=== PATIENT | male | born 1930 | race Caucasian/White ===

== ENCOUNTER 2016-09-26 00:29 | Inpatient (IN) | payer MEDICARE, OTHER ==
[~2016-09-26] VITALS: Ht 170.2 cm; Wt 86.7 kg
[2016-09-26] VITALS (31 sets, daily range): BP systolic 10–176; BP diastolic 44–79; PULSE 61–93; RESP 20; TEMP 97–98.7; O2SAT 80–100
[2016-09-26] MEDS ORDERED: SODIUM CHLORIDE 0.9% FLUSH 5 ML FLUSH IVF PRN (01:00)
[2016-09-26 01:12] LABS: AUTOMATED NEUTROPHIL # 4.8 TH/MM3 (1.8-7.7); BASOPHIL # 0.1 TH/MM3 (0-0.2); BASOPHIL % 0.7 % (0.0-2.0); CHLORIDE 103 MEQ/L (98-107); EOSINOPHIL # 0.1 TH/MM3 (0-0.4); EOSINOPHIL % 1.1 % (0.0-4.0); LYMPH % 47.2 % (9.0-44.0); LYMPHOCYTE # 5.4 TH/MM3 (1.0-4.8); MEAN CELL VOLUME 97.8 FL (80.0-100.0); MEAN CORPUSCULAR HGB CONC 31.7 % (32.0-36.0); MONO % 8.1 % (0.0-8.0); NEUT % 42.9 % (16.0-70.0); PLATELET COUNT 142 TH/MM3 (150-450); POTASSIUM 3.5 MEQ/L (3.5-5.1); RED BLOOD COUNT 3.58 MIL/MM3 (4.50-5.90); RED CELL DISTRIBUTION WIDTH 14.5 % (11.6-17.2); SODIUM (NA) 143 MEQ/L (136-145); WHITE BLOOD COUNT 11.3 TH/MM3 (4.0-11.0)
[2016-09-26 01:15] LABS: HEMO FLAGS AUTO DIFF
[2016-09-26 01:17] LABS: APTT (PATIENT) 35.5 SEC (24.3-30.1); INTERNATIONAL NORMALIZED RATIO 1.1 RATIO; PROTHROMBIN TIME - PATIENT 12.1 SEC (9.8-11.6)
[2016-09-26 01:27] LABS: ANION GAP 18 MEQ/L (5-15); BICARBONATE 22.5 MEQ/L (21.0-32.0); BLOOD UREA NITROGEN 16 MG/DL (7-18); GLOMERULAR FILTRATION RATE 52 ML/MIN (>89); MAGNESIUM 2.1 MG/DL (1.5-2.5)
[2016-09-26 01:35] LABS: ALKALINE PHOSPHATASE 56 U/L (45-117); ALT (GPT) 105 U/L (12-78); AST (GOT) 165 U/L (15-37); TOTAL BILIRUBIN ADULT 0.5 MG/DL (0.2-1.0)
[2016-09-26 01:36] LABS: CREATINE KINASE 80 U/L (39-308)
[2016-09-26 01:41] LABS: CALCIUM-PROTEIN CORRECTED ND MG/DL (8.5-10.1)
--- NOTE | 2016-09-26 01:51 | RADHPO ---
EXAM DATE/TIME: 09/26/2016 01:34 [facility] COMPARISON: No previous studies available for comparison. INDICATIONS : Chest pains. MEDICAL HISTORY : Cardiovascular disease. SURGICAL HISTORY : None. ENCOUNTER: Initial ACUITY: 1 day PAIN SCORE: Non-responsive. LOCATION: Bilateral chest FINDINGS: Supine portable view of the chest demonstrates endotracheal tube tip well above the alonso. There is hazy opacity in the central two thirds of the lungs bilaterally and some consolidation in the retroc ardiac left lower lung. The heart is upper limits normal size for supine film. The osseous structur es are osteopenic. CONCLUSION: 1. ET tube in good position. 2. Bilateral airspace opacities sparing the periphery of the lungs suggestive of pulmonary edema. Lito Ruelas MD on September 26, 2016 at 1:48 Board Certified Radiologist. This report was verified electronically.
[2016-09-26 01:52] LABS: BANDS 4 % (0-6); BASOPHILS 1 % (0-2); EOSINOPHILS 1 % (0-4); METAMYELOCYTES 1 % (0-1); NEUTROPHIL # MANUAL DIFF 4.1 TH/MM3 (1.8-7.7); POLYS (SEG NEUTROPHILS) 31 % (16-70); WBC DIFF SAMPLE 100
[2016-09-26 01:53] LABS: CRENATED RBCS 3+ (NORMAL); HYPERSEGMENTED POLYS 1+ (NORMAL); OVALOCYTES 1+ (NORMAL)
[2016-09-26 01:54] LABS: PLATELET ESTIMATE SMEAR NORMAL (NORMAL); PLATELET MORPHOLOGY NORMAL (NORMAL); SCAN/DIFF FINAL DIFF MANUAL
[2016-09-26 01:56] LABS: BLOOD GAS BASE EXCESS -13.7 mmol/L (-2-2); BLOOD GAS CARBOXYHEMOGLOBIN 0.8 % (0-4); BLOOD GAS HCO3 16 mmol/L (22-26); BLOOD GAS METHEMOGLOBIN 1.1 % (0-2); BLOOD GAS O2 HGB SATURATION 87 % (90-100); BLOOD GAS OXYGEN CONTENT 12.5 Vol % (12.0-20.0); BLOOD GAS PCO2 72 mmHG (38-42); BLOOD GAS PO2 89 mmHG (61-120); TEMP CORR TO 98.6
[2016-09-26 01:57] LABS: CRITICAL VALUE YES; OXYGEN DEVICE VENTILATOR; VENT SETTINGS AC14/550/10PEEP
[2016-09-26 01:58] LABS: DRAW SITE ALINE; FIO2 100 %; STAT YES
[2016-09-26] MEDS ORDERED: FUROSEMIDE 20 MG/2 ML VIAL IV PUSH ONE ×2 (02:30→06:00)
--- NOTE | 2016-09-26 02:56 | RADHPO ---
EXAM DATE/TIME: 09/26/2016 02:27 [facility] COMPARISON: CHEST SINGLE AP, September 26, 2016, 1:34. INDICATIONS : Post internal pacemaker for chest pains. MEDICAL HISTORY : Cardiovascular disease. SURGICAL HISTORY : None. ENCOUNTER: Initial ACUITY: 1 day PAIN SCORE: Non-responsive. LOCATION: Bilateral chest FINDINGS: Interval placement of right internal jugular catheter was tip projected in the right ventricle. Endo tracheal tube tip well above the alonso. Diffuse central mixed interstitial/alveolar opacities in mayte th lungs and consolidation left lower lung, similar to prior. CONCLUSION: Internal pacer catheter tip projects in the right ventricle. No evidence of pneumothorax. Lito Ruelas MD on September 26, 2016 at 2:54 Board Certified Radiologist. This report was verified electronically.
--- NOTE | 2016-09-26 03:18 | PD ---
HPI Chief Complaint: cardiac arrest Time Seen by Provider: 00:56 Travel History International Travel<30 days: No Contact w/Intl Traveler<30days: No History of Present Illness HPI 81 year-old [place], [place] in cardiac [place]. EMS reports that patient has had cough cold symptoms for the past 4-5 days. They are: After he developed shortness of breath 45 minutes prior to arrival. halfway staff reported that he was having some improvement with the DuoNeb they were giving him. EMS reports that when they made contact he was obtunded. He quickly deteriorated into profound bradycardia. Initially tried external pacing but the patient was noted to be asystolic and chest compressions and ACLS were started. They placed a Combitube. They gave multiple rounds of epinephrine. I believe they gave atropine as well but I'm not sure. Patient then had return of spontaneous circulation on arrival to the emergency department. History Past Medical History Narrative Medical According to the CAD with previous angioplasty but no stents Hypertension Social History Tobacco Use: No Allergies-Medications (Allergen,Severity, Reaction): Coded Allergies: No Known Allergies (Unverified , 09/26/16) Reported Meds & Prescriptions Reported Meds & Active Scripts Active Reported Lisinopril 10 Mg Tab 10 Mg PO DAILY Amlodipine (Amlodipine Besylate) 5 Mg Tab 5 Mg PO DAILY Allopurinol 300 Mg Tab 300 Mg PO DAILY Omeprazole 20 Mg Tab 20 Mg PO DAILY Rosuvastatin (Rosuvastatin Calcium) 20 Mg Tab 20 Mg PO DAILY Review of Systems ROS Limitations: Clinical Condition Physical Exam Narrative GENERAL: Obtunded 81 year-old man, poorly perfused. SKIN: Cool mottled. HEAD: Atraumatic. Normocephalic. EYES: Pupils equal and round. No scleral icterus. No injection or drainage. ENT: No nasal bleeding or discharge. Mucous membranes pink and moist. NECK: Trachea midline. No JVD. CARDIOVASCULAR: Strong bounding pulses. No appreciable murmurs. RESPIRATORY: No spontaneous restaurant effort. Combitube in place. Coarse breath sounds bilaterally with lbj-mtizs-cbef ventilation. GASTROINTESTINAL: Abdomen soft. There is a midline scar the upper abdomen. MUSCULOSKELETAL: No obvious deformities. No edema. NEUROLOGICAL: Obtunded. No response to noxious stimuli. Data Data Orders Electrocardiogram (09/26/16 00:55) Ckmb (Isoenzyme) Profile (09/26/16 00:55) Complete Blood Count With Diff (09/26/16 00:55) Magnesium (Mg) (09/26/16 00:55) Prothrombin Time / Inr (Pt) (09/26/16 00:55) Act Partial Throm Time (Ptt) (09/26/16 00:55) Troponin I (09/26/16 00:55) Chest, Single Ap (09/26/16 00:55) B-Type Natriuretic Peptide (09/26/16 00:56) Sodium Chloride 0.9% Flush (Ns Flush) (09/26/16 01:00) Arterial Blood Gas (Abg) (09/26/16 ) Lactic Acid (09/26/16 00:56) Comprehensive Metabolic Panel (09/26/16 00:35) Chest, Single Ap (09/26/16 ) Furosemide Inj (Lasix Inj) (09/26/16 02:30) Admit Order (Ed Use Only) (09/26/16 ) Labs MDM Medical Decision Making Medical Screen Exam Complete: Yes Emergency Medical Condition: Yes Interpretation(s) Chest x-ray: ET tube in good position. Bilateral airspace disease opacity sparing the periphery of the long suggestive of pulmonary edema. Chest x-ray: Internal pacer catheter tip projects right ventricle. No evidence of pneumothorax. LABS: CBC remarkable for mild leukocytosis, H&H 11.1/35, platelet count 142 CMP remarkable for hypercalcemia, glucose 332, anion gap 18, elevated AST and ALT Troponin 0.06 BNP 868 Lactate 6.9 Coags INR 1.1 ABG 6.98/72/89/16, base excess -13.7 Differential Diagnosis NM, arrhythmia, heart failure, heart block, other Narrative Course Medical decision making Disease year-old man who presented stating status post cardiac arrest. Symptoms seem to be a couple days of URI symptoms. Mostly cough symptoms. No fevers. Shortness of breath worsening today. This may been an infectious prodrome or this may benefit worsening CHF prodrome. Ultimately here patient developed third-degree heart block. Initial EKGs were suspicious for diffuse ischemia. Especially in the lateral leads showing ST depressions. QRS complex is wide. Patient had a prolonged course in the ED. Initially patient was treated with calcium chloride for concern for hyperkalemic arrest. He is given IV fluid to support his blood pressure. Multiple EKGs were obtained. Patient continued to have bradycardia response of epinephrine. He had one repeat also pulses with bradycardia asystolic arrest PEA arrest areas he responded quickly to compressions and epinephrine. His ET tube was changed. It was a difficult exchange and required use of the video laryngoscope. Repeat EKGs done during bradycardia demonstrated clear third-degree heart block. Transcutaneous pacing was reinitiated. I spoke with the motion picture critic initially she reviewed the first ischemic EKG. Notable for IVCD, we are in agreement not STEMI. After third-degree heart block was appreciable, and patient placed on trace cutaneous pacing here and I called him back and we discussed transvenous pacing. Patient be sent to the main ICU, they will notify him once the patient arrives. Transvenous pacer was successfully placed through a right IJ catheter. Patient developed some hypotension following this. X-ray also shows volume overload. IV fluids were stopped. Lasix was given. PEEP was increased. We also started norepinephrine drip. Critical Care Narrative Aggregate critical care time was 75 minutes. Time to perform other separately billable procedures was not included in the critical care time. My time did not include minutes spent treating any other patients simultaneously or on activities that did not directly contribute to the patient's treatment. The services I provided to this patient were to treat and/or prevent clinically significant deterioration that could result in: , disability, heart block, shock, brain , NM. I provided critical care services requiring my management, as noted below: Chart data review, documentation time, medication orders and management, vital sign assessments/reviewing monitor data, ordering and reviewing lab tests, ordering and interpreting/reviewing x-rays and diagnostic studies, care of the patient and discussion of the patient with the admitting physicians. Procedures Procedure Narrative Intubation: Patient was given 20 of Etomidate and 50 of Rocuronium to facilitate optimal ventilating conditions. Combitube was removed. Monge to was used to visualize the larynx. Initial temperature unsuccessful. Patient was then bagged valve mask assisted and feeling scope was brought to the bedside. A to G was in placed under video laryngoscopy successfully. No complications. Central line: Right IJ was prepped with chlorhexidine. 6.5 Nepalese introducer was placed under ultrasound guidance under sterile conditions without complication. Transvenous pacer: Following placement of the right IJ catheter, transvenous pacemaker was placed while monitoring arterial line. When good mechanical capture was noted, settings were adjusted. Patient was paced at a rate of 70, 1 milliamp, asynchronous. Radial arterial line: Right radius was prepped with chlorhexidine. 20-gauge angiocatheter was placed by me at the bedside without difficulty. Good waveform. Patient tolerated well. Diagnosis Primary Impression: Cardiac arrest Additional Impression: Third degree heart block Admitting Information Admitting Physician Requests: Admit Alvaro Guthrie MD Sep 26, 2016 03:18 Random Glucose 332 MG/DL Calcium Level 13.2 MG/DL Protein Corrected Calcium MG/DL Magnesium Level 2.1 MG/DL Total Bilirubin 0.5 MG/DL Aspartate Amino Transf 165 U/L (AST/SGOT) Alanine Aminotransferase 105 U/L (ALT/SGPT) Alkaline Phosphatase 56 U/L Total Creatine Kinase 80 U/L Troponin I 0.06 NG/ML B-Type Natriuretic Peptide 868 PG/ML Total Protein 5.3 GM/DL Albumin 2.6 GM/DL Blood Gas Puncture Site LEONARDO Blood Gas Patient Temperature 98.6 Blood Gas HCO3 16 mmol/L Blood Gas Base Excess -13.7 mmol/L Blood Gas Oxygen Saturation 87 % Arterial Blood pH 6.98 Arterial Blood Partial 72 mmHG Pressure CO2 Arterial Blood Partial 89 mmHG Pressure O2 Arterial Blood Oxygen Content 12.5 Vol % Arterial Blood 0.8 % Carboxyhemoglobin Arterial Blood Methemoglobin 1.1 % Blood Gas Hemoglobin 10.0 G/DL Oxygen Delivery Device VENTILATOR Blood Gas Ventilator Setting AC14/550/10PEEP Blood Gas Inspired Oxygen 100 % Lactic Acid Level 6.9 mmol/L [facility] Medical Decision Making Medical Screen Exam Complete: Yes Emergency Medical Condition: Yes Interpretation(s) Chest x-ray: ET tube in good position. Bilateral airspace disease opacity sparing the periphery of the long suggestive of pulmonary edema. Chest x-ray: Internal pacer catheter tip projects right ventricle. No evidence of pneumothorax. LABS: CBC remarkable for mild leukocytosis, H&H 11.1/35, platelet count 142 CMP remarkable for hypercalcemia, glucose 332, anion gap 18, elevated AST and ALT Troponin 0.06 BNP 868 Lactate 6.9 Coags INR 1.1 ABG 6.98/72/89/16, base excess -13.7 Differential Diagnosis NM, arrhythmia, heart failure, heart block, other Narrative Course Medical decision making Disease year-old man who presented stating status post cardiac arrest. Symptoms seem to be a couple days of URI symptoms. Mostly cough symptoms. No fevers. Shortness of breath worsening today. This may been an infectious prodrome or this may benefit worsening CHF prodrome. Ultimately here patient developed third-degree heart block. Initial EKGs were suspicious for diffuse ischemia. Especially in the lateral leads showing ST depressions. QRS complex is wide. Patient had a prolonged course in the ED. Initially patient was treated with calcium chloride for concern for hyperkalemic arrest. He is given IV fluid to support his blood pressure. Multiple EKGs were obtained. Patient continued to have bradycardia response of epinephrine. He had one repeat also pulses with bradycardia asystolic arrest PEA arrest areas he responded quickly to compressions and epinephrine. His ET tube was changed. It was a difficult exchange and required use of the video laryngoscope. Repeat EKGs done during bradycardia demonstrated clear third-degree heart block. Transcutaneous pacing was reinitiated. I spoke with the motion picture critic initially she reviewed the first ischemic EKG. Notable for IVCD, we are in agreement not STEMI. After third-degree heart block was appreciable, and patient placed on trace cutaneous pacing here and I called him back and we discussed transvenous pacing. Patient be sent to the main ICU, they will notify him once the patient arrives. Transvenous pacer was successfully placed through a right IJ catheter. Patient developed some hypotension following this. X-ray also shows volume overload. IV fluids were stopped. Lasix was given. PEEP was increased. We also started norepinephrine drip. Critical Care Narrative Aggregate critical care time was 75 minutes. Time to perform other separately billable procedures was not included in the critical care time. My time did not include minutes spent treating any other patients simultaneously or on activities that did not directly contribute to the patient's treatment. The services I provided to this patient were to treat and/or prevent clinically significant deterioration that could result in: , disability, heart block, shock, brain , NM. I provided critical care services requiring my management, as noted below: Chart data review, documentation time, medication orders and management, vital sign assessments/reviewing monitor data, ordering and reviewing lab tests, ordering and interpreting/reviewing x-rays and diagnostic studies, care of the patient and discussion of the patient with the admitting physicians. Procedures Procedure Narrative Intubation: Patient was given 20 of Etomidate and 50 of Rocuronium to facilitate optimal ventilating conditions. Combitube was removed. Monge to was used to visualize the larynx. Initial temperature unsuccessful. Patient was then bagged valve mask assisted and feeling scope was brought to the bedside. A to G was in placed under video laryngoscopy successfully. No complications. Central line: Right IJ was prepped with chlorhexidine. 6.5 Nepalese introducer was placed under ultrasound guidance under sterile conditions without complication. Transvenous pacer: Following placement of the right IJ catheter, transvenous pacemaker was placed while monitoring arterial line. When good mechanical capture was noted, settings were adjusted. Patient was paced at a rate of 70, 1 milliamp, asynchronous. Radial arterial line: Right radius was prepped with chlorhexidine. 20-gauge angiocatheter was placed by me at the bedside without difficulty. Good waveform. Patient tolerated well. Diagnosis Primary Impression: Cardiac arrest Additional Impression: Third degree heart block Admitting Information Admitting Physician Requests: Admit Alvaro Guthrie MD Sep 26, 2016 03:18
[2016-09-26 03:25] LABS: BLOOD GAS BASE EXCESS -9.3 mmol/L (-2-2); BLOOD GAS CARBOXYHEMOGLOBIN 1.3 % (0-4); BLOOD GAS HCO3 18 mmol/L (22-26); BLOOD GAS METHEMOGLOBIN 1.1 % (0-2); BLOOD GAS O2 HGB SATURATION 84 % (90-100); BLOOD GAS OXYGEN CONTENT 12.6 Vol % (12.0-20.0); BLOOD GAS PCO2 50 mmHG (38-42); BLOOD GAS PO2 70 mmHG (61-120); BLOOD GAS TOTAL HGB 10.6 G/DL (12.0-16.0); TEMP CORR TO 98.6
[2016-09-26 03:26] LABS: CRITICAL VALUE YES; DRAW SITE ALINE; FIO2 100 %; OXYGEN DEVICE VENTILATOR; STAT YES; VENT SETTINGS AC20/550/125PEEP
[2016-09-26] MEDS ORDERED: PROPOFOL 1000 MG/100 ML INJ 100 ML ONE (03:39)
[2016-09-26] MEDS ORDERED: PROPOFOL 1000 MG/100 ML INJ 100 ML IV SCH (03:45)
[2016-09-26] MEDS ORDERED: ROCURONIUM INJ 50 MG/5 ML VIAL ONE ×2 (05:18→05:19)
[2016-09-26] MEDS ORDERED: MIDAZOLAM 100 MG/ML INJ 100 ML ONE (05:30)
[2016-09-26] MEDS ORDERED: fentaNYL DRIP 250 ML ONE (05:31)
[2016-09-26] MEDS ORDERED: MIDAZOLAM HCL 2 MG/2 ML VIAL IV ONE (05:45)
[2016-09-26] MEDS ORDERED: CISATRACURIUM BESYLATE 20 MG/10 ML VIAL IVP ONE (05:45)
[2016-09-26] MEDS ORDERED: fentaNYL DRIP 250 ML IV SCH (05:45)
[2016-09-26 05:54] LABS: BLOOD GAS BASE EXCESS -7.5 mmol/L (-2-2); BLOOD GAS CARBOXYHEMOGLOBIN 0.9 % (0-4); BLOOD GAS HCO3 19 mmol/L (22-26); BLOOD GAS O2 HGB SATURATION 87 % (90-100); BLOOD GAS OXYGEN CONTENT 14.5 Vol % (12.0-20.0); BLOOD GAS PCO2 50 mmHg (38-42); BLOOD GAS PO2 69 mmHg (61-120); BLOOD GAS TOTAL HGB 11.9 G/DL (12.0-16.0); CRITICAL VALUE YES; OXYGEN DEVICE VENTILATOR; TEMP CORR TO 98.6; VENT SETTINGS PC/AC20/IP15/
[2016-09-26 05:55] LABS: DRAW SITE ART LINE; FIO2 100 %; STAT YES
[2016-09-26] MEDS ORDERED: POTASSIUM CHLOR 20 MEQ PREMIX 100 ML IV ONE (06:00)
[2016-09-26] MEDS ORDERED: SODIUM BICARBONATE 8.4% INJ 50 MEQ/50 ML SYR IV PUSH ONE (06:30)
[2016-09-26] MEDS ORDERED: SODIUM BICARBONATE 8.4% INJ 50 ML ONE ×2 (06:32→11:01)
--- NOTE | 2016-09-26 07:24 | HHI.HP ---
HPI Service Critical Care Medicine Primary Care Physician Non-Staff Admission Diagnosis cardiac arrest, complete heart block Diagnosis: Travel History International Travel<30 Days: No Contact w/Intl Traveler <30 Da: No Traveled to Known Affected Are: No (UNKNOWN) History of Present Illness 86-year-old male with PMH of coronary artery disease with angioplasty in 1991, CHF, who originally came in as a José Miguel Gambino to [facility] emergency department. His states that he had been having some shortness of breath and what she describes as "cold symptoms" for about 4-5 days. She states he acutely awoke very short of breath and [facility] was called. They initially gave a DuoNeb and felt that he was getting some response however he became her family bradycardic and unresponsive. He was in asystole. He received chest compressions, multiple doses of epinephrine, and Combitube was placed. They obtained ROSC upon arrival to ED after unknown period of CPR. He did lose pulses again and had CPR in the ED and one dose of epinephrine. He had ROSC. Combitube was removed and patient was reintubated with some difficulty requiring glide scope. EKG showed complete heart block. He was paced transcutaneous. Dr. Guthrie discussed EKG with land developer due to concern for ischemia but findings were felt to be consistent with 3rd degree heart block without STEMI. Transvenous pacemaker was placed by Dr. Guthrie with good capture. Patient remained hypotensive and levophed was initiated. He was severely hypoxic with sats in 70s on 100% FIO2 so PEEP was increased to 14 prior to transfer. Upon arrival he was on PEEP of 10 and sats were in the 70s and he was on Levophed 12 mcg/min. Pupils fixed, nonreactive. +corneal reflex and spontaneous respirations. was unclear of his medication list upon initial admission. She did state that one of his antihypertensive medications had been discontinued a few months ago due to bradycardia. Past Family Social History Allergies: Coded Allergies: No Known Allergies (Unverified , 09/26/16) Past Medical History Hypertension CHF Hyperlipidemia High Uric acid renal stones Prostate cancer GERD Past Surgical History Cholecystectomy Left hip replacement Right femur ORIF Angioplasty in 1991. He has had no other invasive cardiology workup since then. Reported Medications did not know medications when I initially did my H&P. Subsequently medication list was obtained and includes: Lisinopril 10 mg by mouth daily Allopurinol 300 mg by mouth daily Norvasc 5 mg by mouth daily Rosuvastatin 20 mg po daily Omeprazole 20 mg po daily Family History His brothers both at age 83. One had COPD one had previously had a heart valve replacement. Both had pacemakers. Social History Lifetime nonsmoker Drinks alcohol daily. She states "to very large alcoholic beverages" Denies use of illicit drugs Originally from [place]. Currently living in [facility] and are visiting the area. Physical Exam Vital Signs Vital Signs Date Time Temp Pulse Resp B/P Pulse Ox O2 Delivery O2 Flow Rate FiO2 09/26/16 06:07 20 95 Ventilator 09/26/16 05:25 86 100 09/26/16 05:02 85 100 09/26/16 04:35 78 20 96/58 Ventilator Arterial Line 09/26/16 04:25 79 20 92/58 80 Ventilator Arterial Line 09/26/16 03:12 69 20 112/56 87 Ventilator 09/26/16 02:43 20 99/56 89 Ventilator 09/26/16 02:40 20 100/71 88 Ventilator 09/26/16 01:55 85 100 09/26/16 01:43 67 20 111/45 88 Ventilator Automatic Cuff 09/26/16 01:33 88 100 09/26/16 01:20 20 117/79 88 Ventilator 09/26/16 01:15 20 176/69 89 Ventilator 09/26/16 01:00 95 Ventilator 09/26/16 01:00 92 100 09/26/16 00:50 73 20 71/49 89 09/26/16 00:49 20 99/56 90 09/26/16 00:42 90 Bag Valve 09/26/16 00:40 20 82/45 09/26/16 00:35 91 20 139/59 93 09/26/16 00:32 61 20 100/44 92 09/26/16 00:30 70 20 92 Bag Valve 09/26/16 00:29 92 Bag Valve 15 09/26/16 00:29 70 20 100/44 92 Physical Exam Paced rate 70, 1 mA. sats 79% on PRVC wit hPEEP 10 FIO2 100%. Drips: Propofol 20 mg per KG per minute Norepinephrine 12 mcg/m GENERAL: Well-nourished, well-developed patient who is orotracheally intubated. SKIN: Dry HEAD: Atraumatic. Normocephalic. EYES: Pupils fixed dilated bilaterally~6mm. No scleral icterus. No injection or drainage. ENT: No nasal bleeding or discharge. Mucous membranes pink and moist. NECK: Trachea midline. +JVD CARDIOVASCULAR: paced rhythm on monitor at 70. Adjusted rate to heart rate 90 which resulted in improvement of MAP on same levophed dose. No murmurs rubs or gallops. RESPIRATORY: Coarse breath sounds bilaterally. No wheezes. GASTROINTESTINAL: Abdomen soft, non-tender, nondistended. Bowel sounds hypoactive. MUSCULOSKELETAL: Extremities without clubbing, cyanosis, or edema. No obvious deformities. Scar overlying left knee NEUROLOGICAL: Pupils unreactive as per above. + corneal + spontaneous respirations. No facial grimace to deep noxious stimuli. Some jerking movements of bilateral upper extremities when sedation lightened. Does not withdraw. No lower extremity movement response to deep noxious stimuli. Laboratory Laboratory Tests Test 09/26/16 09/26/16 09/26/16 09/26/16 00:35 01:34 02:34 02:59 White Blood Count 11.3 Red Blood Count 3.58 Hemoglobin 11.1 Hematocrit 35.0 Mean Corpuscular Volume 97.8 Mean Corpuscular Hemoglobin 31.0 Mean Corpuscular Hemoglobin 31.7 Concent Red Cell Distribution Width 14.5 Platelet Count 142 Mean Platelet Volume 7.6 Neutrophils (%) (Auto) 42.9 Lymphocytes (%) (Auto) 47.2 Monocytes (%) (Auto) 8.1 Eosinophils (%) (Auto) 1.1 Basophils (%) (Auto) 0.7 Neutrophils # (Auto) 4.8 Lymphocytes # (Auto) 5.4 Monocytes # (Auto) 0.9 Eosinophils # (Auto) 0.1 Basophils # (Auto) 0.1 CBC Comment AUTO DIFF Differential Total Cells 100 Counted Neutrophils % (Manual) 31 Band Neutrophils % 4 Lymphocytes % 57 Monocytes % 5 Eosinophils % 1 Basophils % 1 Neutrophils # (Manual) 4.1 Metamyelocytes 1 Differential Comment FINAL DIFF MANUAL Hypersegmented Polys 1+ Platelet Estimate NORMAL Platelet Morphology Comment NORMAL Ovalocytes 1+ Crenated Cell 3+ Prothrombin Time 12.1 Prothromb Time International 1.1 Ratio Activated Partial 35.5 Thromboplast Time Sodium Level 143 Potassium Level 3.5 Chloride Level 103 Carbon Dioxide Level 22.5 Anion Gap 18 Blood Urea Nitrogen 16 Creatinine 1.20 Estimat Glomerular Filtration 52 Rate Random Glucose 332 Calcium Level 13.2 Protein Corrected Calcium Magnesium Level 2.1 Total Bilirubin 0.5 Aspartate Amino Transf 165 (AST/SGOT) Alanine Aminotransferase 105 (ALT/SGPT) Alkaline Phosphatase 56 Total Creatine Kinase 80 Troponin I 0.06 2.27 B-Type Natriuretic Peptide 868 Total Protein 5.3 Albumin 2.6 Blood Gas Puncture Site LEONARDO Blood Gas Patient Temperature 98.6 Blood Gas HCO3 16 Blood Gas Base Excess -13.7 Blood Gas Oxygen Saturation 87 Arterial Blood pH 6.98 Arterial Blood Partial 72 Pressure CO2 Arterial Blood Partial 89 Pressure O2 Arterial Blood Oxygen Content 12.5 Arterial Blood 0.8 Carboxyhemoglobin Arterial Blood Methemoglobin 1.1 Blood Gas Hemoglobin 10.0 Oxygen Delivery Device VENTILATOR Blood Gas Ventilator Setting AC14/550/10PEEP Blood Gas Inspired Oxygen 100 Lactic Acid Level 6.9 Test 09/26/16 09/26/16 09/26/16 03:15 05:40 05:59 Blood Gas Puncture Site LEONARDO ART LINE Blood Gas Patient Temperature 98.6 98.6 Blood Gas HCO3 18 19 Blood Gas Base Excess -9.3 -7.5 Blood Gas Oxygen Saturation 84 87 Arterial Blood pH 7.18 7.21 Arterial Blood Partial 50 50 Pressure CO2 Arterial Blood Partial 70 69 Pressure O2 Arterial Blood Oxygen Content 12.6 14.5 Arterial Blood 1.3 0.9 Carboxyhemoglobin Arterial Blood Methemoglobin 1.1 1.0 Blood Gas Hemoglobin 10.6 11.9 Oxygen Delivery Device VENTILATOR VENTILATOR Blood Gas Ventilator Setting AC20/550/125PEEP PC/AC20/IP15/ Blood Gas Inspired Oxygen 100 100 Lactic Acid Level 3.8 Phosphorus Level 5.6 Thyroid Stimulating Hormone 1.270 3rd Gen Result Diagram: 09/26/16 0035 09/26/16 0035 Assessment and Plan Assessment and Plan NEURO: Acute encephalopathy ?Anoxia Pupils fixed but other brainstem reflexes intact. Limited in ability to do full neuro assessment as he is severely hypoxic and must maintain some sedation; now requiring paralytic to facilitate oxygenation. Would avoid induced therapeutic hypothermia given asystolic arrest and 3rd degree heart block with ongoing severe hemodynamic instability. aware of guarded neuro prognosis. d/c propofol for sedation to avoid myocardial depression. Fentanyl for analgosedation. Versed bolus prn and versed drip Nimbex to facilitate oxygenation. RESP: Acute respiratory failure Pulmonary edema PCV Insp P 15 R 20 PEEP 14 It 0.8 sats 100%(TV 590). Duoneb q 6 hours. Vent bundle. repeat ABG. Received lasix 20 mg IV in ED without response. Additional 60 mg IV now. Nimbex as per above. Flolan neb 50 ng/kg/min CV: Asystolic cardiac arrest 3rd degree heart block Cardiogenic shock Acute systolic heart failure Concerned for decreased contractility and WMA based on limited bedside Echo. D/ c propofol as per above.Continue Levophed to maintain MAP >65. Serial troponin. Stat EKG with LBBB pattern. Stat 2DEcho. ASA 325 been given in ED. Continue 81 daily Transvenous pacer placed in ED 09/26. Set rate to 90 to increase cardiac output ( MAP increased). 0.5 mAmp (did not tolerate lower). Hold norvasc/lisinopril due to hypotension. Hold statin due to elevated LFTS. Cardiology consulted. Discussed with Dr. Howie Madrid. GI: Transaminase elevation due to CHF/ischemic hepatopathy NPO. OGT LIWS FEN/RENAL: Hypercalcemia (iatrogenic following calcium administration due to concern for hyperkalemia induced bradycardia) Acute severe metabolic acidemia Lactic acidemia secondary to cardiogenic shock h/o high uric acid stones - Hold allopurinol for now. Dominguez in place. Monitor intake and output. Monitor electrolytes. Potassium chloride 20 mEq IV now. Replace further electrolyte as indicated. Bicarb 100 MEQ IV x1 due to severe acidemia. Followup ABG after vent change/ resuscitation. Serial BMP, Mag, lactic acid every 6 hours. ID:Presentation appears cardiogenic and patient with severe life threatening hypoxemia and pulmonary edema, so will avoid antibiotics at this time. Low threshold to culture and use empiric antibiotics if he develops fever or other concern for infection. HEME: Monitor CBC. ENDO: Acute stress hyperglycemia Low dose insulin sliding scale every 4 hours PROPH: Heparin subcutaneous for DVT prophylaxis. Protonix 40 mg IV daily for stress ulcer prophylaxis ACCESS: R IJ Introducer and pacer placed in ED 09/26 . Right radial art line placed in ED 09/26 #[address] Madrid. Discussed with Dr. Guthrie. . was updated at bedside. states he previously had an advanced directive stating that he is DNR. However in view of the fact that he had ROSC after this current cardiac arrest she states that she would "want to keep trying for now". But she states he would not want to be kept alive on life support with poor neurologic function. She is aware possibility for anoxic injury at this time, will require ongoing assessment of neuro function if he stabilizes enough to allow sedation vacation. CCT 90 minutes exclusive of separately billable procedures. Cristy Whitfield MD Sep 26, 2016 07:24
[2016-09-26] MEDS ORDERED: ONDANSETRON HCL 4 MG/2 ML VIAL IV PRN (07:30)
[2016-09-26] MEDS ORDERED: CHLORHEXIDINE GLUCONATE 2 % 1 PACK (2 CLOTHS) TOP PRN (07:30)
[2016-09-26] MEDS ORDERED: SODIUM CHLORIDE 0.9% FLUSH 5 ML FLUSH IV FLUSH PRN (07:30)
[2016-09-26] MEDS ORDERED: MISCELLANEOUS NURSING INFORMATION XX SCH (07:30)
[2016-09-26] MEDS ORDERED: RESP: ALBUTEROL 2.5 MG/3 ML NEB (PRN) INH (07:30)
[2016-09-26] MEDS ORDERED: ACETAMINOPHEN 325 MG TAB PO PRN (07:30)
[2016-09-26] MEDS ORDERED: MIDAZOLAM HCL 2 MG/2 ML VIAL IV PRN (07:30)
[2016-09-26] MEDS: MIDAZOLAM 100 MG/ML INJ 100 ML IV SCH (07:48)
[2016-09-26] MEDS: EPOPROSTENOL NEB SOLUTION 50 NG/KG/MIN 100 ML NEB SCH ×6 (07:49→22:45)
[2016-09-26] MEDS: CHLORHEXIDINE 0.12% (ORAL KIT) 15 ML CUP MT SCH ×2 (08:00→20:00)
[2016-09-26] MEDS ORDERED: ASPIRIN 81 MG CHEW TAB TUBE ONE ×2 (08:00→09:00)
[2016-09-26] MEDS: HEPARIN SODIUM - SQ 10,000 UNITS/ML VIAL SQ SCH ×2 (09:51→17:04)
[2016-09-26] MEDS: SODIUM CHLORIDE 0.9% FLUSH 5 ML FLUSH IV FLUSH SCH ×2 (09:51→21:00)
[2016-09-26] MEDS: PANTOPRAZOLE SODIUM 40 MG VIAL IV SCH (09:51)
[2016-09-26] MEDS ORDERED: OMEP20TA PO (10:02)
[2016-09-26] MEDS ORDERED: AMLO5TAB2 PO (10:02)
[2016-09-26] MEDS ORDERED: ROSU1TAB8 PO (10:02)
[2016-09-26] MEDS ORDERED: ALLO300T2 PO (10:02)
[2016-09-26] MEDS ORDERED: LISI10TA3 PO (10:02)
[2016-09-26] MEDS ORDERED: POTASSIUM CHLOR 40 MEQ PREMIX 100 ML ONE (11:00)
--- NOTE | 2016-09-26 11:25 | EC ---
Study Study Date:09/26/2016 STUDY CONCLUSIONS SUMMARY - Left ventricle: The cavity size was mildly dilated. Wall thickness was normal. Systolic function was severely reduced. The estimated ejection fraction was in the range of 20% to 25%. Diffuse hypokinesis. Akinesis of the apical myocardium. Doppler parameters are consistent with abnormal left ventricular relaxation (grade 1 diastolic dysfunction). - Aortic valve: Moderate regurgitation. - Left atrium: A density was seen in the high left atrium, also on additional pictures obtained; consider RICKY if clinically appropriate. - Pulmonary arteries: PA peak pressure: 39mm Hg (S). If LV function is below 40, please consider prescribing an ACEI or ARB or document rationale for non-use. PROCEDURE DATA STUDY STATUS: Elective. Procedure: Transthoracic echocardiography. Image quality was good. Scanning was performed from the parasternal, apical, and subcostal acoustic windows. Study completion: The patient tolerated the procedure well. Transthoracic echocardiography. M-mode, complete 2D, complete spectral Doppler, and color Doppler. Patient status: Inpatient. CARDIAC ANATOMY LEFT VENTRICLE: The cavity size was mildly dilated. Wall thickness was normal. Systolic function was severely reduced. The estimated ejection fraction was in the range of 20% to 25%. Diffuse hypokinesis. Regional wall motion abnormalities: Akinesis of the apical myocardium. Doppler parameters are consistent with abnormal left ventricular relaxation (grade 1 diastolic dysfunction). AORTIC VALVE: Trileaflet; moderately thickened, moderately calcified leaflets. Doppler: Transvalvular velocity was within the normal range. There was no stenosis. Moderate regurgitation. Mean gradient: 9mm Hg (S). Peak gradient: 19mm Hg (S). AORTA: Aortic root: The aortic root was normal in size. MITRAL VALVE: Structurally normal valve. Doppler: Transvalvular velocity was within the normal range. There was no evidence for stenosis. Trace regurgitation. LEFT ATRIUM: A density was seen in the high left atrium, also on additional pictures obtained; consider RICKY if clinically appropriate. The atrium was normal in size. RIGHT VENTRICLE: The cavity size was normal. Wall thickness was normal. PULMONIC VALVE: Doppler: Transvalvular velocity was within the normal range. There was no evidence for stenosis. No regurgitation. TRICUSPID VALVE: Structurally normal valve. Doppler: Transvalvular velocity was within the normal range. No regurgitation. PULMONARY ARTERY: The main pulmonary artery was normal-sized. Systolic pressure was within the normal range. RIGHT ATRIUM: The atrium was normal in size. PERICARDIUM: There was no pericardial effusion. SYSTEMIC VEINS: Inferior vena cava: The vessel was normal in size. BASIC MEASUREMENTS ADULT Normal Left ventricle LV internal dimension, ED, chordal level, *59.3 mm 43-52 PLAX LV internal dimension, ES, chordal level, *56.2 mm 23-38 PLAX Fractional shortening, chordal level, PLAX *5 % >29 LV posterior wall thickness, ED 8.63 mm IVS/LVPW ratio, ED 1.13 <1.3 Volume, ED, MOD, 1-plane 135 ml Volume, ES, MOD, 1-plane 99 ml Ejection fraction, MOD, 1-plane 27 % Stroke volume, MOD, 1-plane 36 ml Volume, ED, MOD, 2-plane 169 ml Volume, ES, MOD, 2-plane 122 ml Ejection fraction, MOD, 2-plane 28 % Stroke volume, MOD, 2-plane 47 ml Ventricular septum Septal thickness, ED 9.77 mm Left atrium Anterior-posterior dimension 37 mm Right ventricle RV internal dimension, ED, PLAX 28.1 mm 19-38 DOPPLER MEASUREMENTS ADULT Normal Main pulmonary artery Pressure, S *39 mm Hg =30 Aortic valve Peak velocity, S 218 cm/s Mean velocity, S 132 cm/s VTI, S 39.8 cm Mean gradient, S 9 mm Hg Peak gradient, S 19 mm Hg Mitral valve Peak E-wave velocity 52.8 cm/s Peak A-wave velocity 77 cm/s Peak E/A ratio 0.7 Tricuspid valve Regurgitant peak velocity 217 cm/s Peak RV-RA gradient, S 19 mm Hg Maximal regurgitant velocity 217 cm/s Systemic veins Estimated CVP 20 mm Hg Right ventricle RV pressure, S *39 mm Hg <30 LEGEND: Mean values are shown as u=mean value. Asterisk (*) christopher values outside specified normal range. Amended Sean Severino [id number]
[2016-09-26] MEDS: RESP: ALBUTEROL 2.5 MG/IPRATROPIUM 0.5 MG NEB (SCH) INH ×4 (12:03→22:19)
[2016-09-26] MEDS ORDERED: GLUCAGON 1 MG/ML VIAL OTHER PRN (12:45)
[2016-09-26] MEDS ORDERED: DEXTROSE 50% IN WATER 50 ML VIAL(D50) IV PUSH PRN (12:45)
[2016-09-26] MEDS: INSULIN ASPART SUPPLEMENTAL SCALE SQ SCH ×3 (13:00→21:00)
--- NOTE | 2016-09-26 13:05 | MB ---
cc: VIKTOR TRISTAN DO DATE OF CONSULTATION: 09/26/2016 REASON FOR CONSULTATION: Cardiac arrest. HISTORY OF PRESENT ILLNESS Barbi Cee is a 86-year-old male who originally presented as a JohnDoe in cardiac arrest to [facility] emergency room on September 26, 2016. Per the record he had a history for the records he has had cold symptoms for the past 4-5 days. He then developed shortness of breath and the [facility] staff was trying to give him DuoNeb's with some improvement. EMS was called and by the time they got there the patient was obtunded and in profound brachycardia. They initially tried external pacing but the patient was noted to be asystolic and chest compressions and ACLS were started. He was given multiple rounds of epinephrine and possible atropine. On arrival to the emergency room he had return of spontaneous circulation. He had one further episode of PE arrest in the emergency room which he had return of spontaneous circulation after compressions and epinephrine. While here he developed third degree heart block and a transvenous pacemaker was placed. In seeing him at this time in the ICU. He is currently stable an extremely guarded condition currently supported by the vent and vasopressor medications. Transvenous pacer is currently still in place and the pacer is not pacer dependent. PAST MEDICAL HISTORY Per the coronary artery disease with previous angioplasty but no stent placed, (believed to be in the ) Hypertension. PAST SURGICAL HISTORY Cardiac catheterization as above with the angioplasty but no stent placement. ALLERGIES NO KNOWN DRUG ALLERGIES. MEDICATIONS Unknown at this time due to the patient's current status. SOCIAL HISTORY Lives in the [facility], otherwise unknown due to the patient's current situation. FAMILY HISTORY Unable to obtain. REVIEW OF SYSTEMS Unable to obtain except for initially by EMS to the emergency room with colon cough symptoms for 4-5 days. PHYSICAL EXAMINATION VITAL SIGNS: Temperature 97, heart rate 80, blood pressure 140/76, respirations 20, pulse ox 98% on 100% on the ventilator. IN GENERAL: In general the patient is sedated on the ventilator. HEAD, EYES, EARS, NOSE, AND THROAT: Eyes were fixed and dilated. ET tube is in place. NECK: Neck is supple. No JVD at 45 degrees. No carotid bruits heard bilaterally. Right IJ in place with a transvenous pacer. HEART: Heart is regular rate and rhythm. Positive first and second heart sounds with no pressure will murmurs. LUNGS: Lungs have decreased breath sounds bilaterally. ABDOMEN: Soft, nontender, nondistended. No organomegaly noted. EXTREMITIES: Show no clubbing, cyanosis or edema. Femoral and distal pulses intact bilaterally. NEUROLOGIC: Neurologically unable to determine due to current sedation and critical nature. SKIN: Warm, dry and intact. Osteopathic late no kyphoscoliosis, lordosis or paraspinal tender points. LABORATORY FINDINGS Hemoglobin 11.1, hematocrit 35.0, platelets 142. Potassium 3.5, BUN 16, creatinine 1.2, calcium 13.2, troponin 2.27, lactic acid 6.9. Electrocardiogram (September 26, 2016 at 12:50) probable accelerated new ventricular rhythm with interventricular conduction delay. IMPRESSION Cardiopulmonary arrest Third degree AV block requiring to transvenous pacemaker. Cardiac shock requiring pressor therapy. NSTEMI unsure type 1 versus type 2 Significant lactic acidosis with a pH of 6.98 on arrival metabolic in nature. Significant hypoxemia. Vent dependent respiratory failure. History of coronary artery disease with previous angioplasty but no stenting. RECOMMENDATIONS Barbi Cee appears to have presented with cardiopulmonary arrest. Unsure of the underlying cause whether that be significant hypoxemia leading to lactic acidosis and cardiac deterioration versus cardiac underlying cause. Continue with supportive care per the critical care team. We will continue on pressor therapy to keep above 65. Continue with transvenous pacer on a backup rate of 40. Currently not pacer dependent. Third degree heart block may be due to significant lactic acidosis. Will check a 2-D echo to look at his overall left ventricular function, cardiac structure and possible vulvopathies. We will continue to follow troponins but this elevation may be secondary to his underlying acute illness extreme hypoxemia and lactic acidosis. Further recommendations will be made based on hospital course. Thank you for allowing me to see Barbi Cee if there are any questions please do not hesitate to call. Viktor Tristan DO VGP/ /9:08 AM /12:16 PM [facility]
--- NOTE | 2016-09-26 16:31 | EKG ---
Date Performed: 09/26/2016 Time Performed: 00:50:32 PTAGE: 86 years EKG: Probable accelerated idioventricular rhythm QRS very wide. This could be due to ischemia or electrolyte or other abnormality. [place] leftward Diffuse ST T changes NO PREVIOUS TRACING for comparison Clinical correlation is recommended Abnormal ECG PREVIOUS TRACING : 09/26/2016 00.37 DOCTOR: Juan Alberto Malagon Interpretating Date/Time 09/26/2016 16:30:00
--- NOTE | 2016-09-26 16:35 | EKG ---
Date Performed: 09/26/2016 Time Performed: 05:56:20 PTAGE: 86 years EKG: APPEARS TO BE Sinus rhythm WITH FIRST DEGREE AV BLOCK WITH MA INTERVAL OF .222 WIDE QRS COMPLEX WITH LBBB PATTERN AND LEFT AXIS DEVIATION NO SPECIFIC ST T CHANGE SINCE PREVIOUS TRACING OF 09/26/2016, QRS IS NOT WIDE. APPEARS TO BE SINUS RHYTHM PRESENT AN D THE ST T CHANGES ARE LESS PROMINENT. Clinical correlation is recommended PREVIOUS TRACING 09/26/2016 @00.50.32 DOCTOR: Juan Alberto Malagon Interpretating Date/Time 09/26/2016 16:54:40
--- NOTE | 2016-09-26 17:15 | RADRPT ---
EXAM DATE/TIME: 09/26/2016 16:16 [facility] COMPARISON: No previous studies available for comparison. INDICATIONS : Altered mental status. RADIATION DOSE: 56.35 CTDIvol (mGy) MEDICAL HISTORY : Carcinoma, prostate. Hypertension. SURGICAL HISTORY : None. ENCOUNTER: Initial ACUITY: 1 day PAIN SCALE: Non-responsive LOCATION: cranial TECHNIQUE: Multiple contiguous axial images were obtained of the head. Using automated exposure control and adj ustment of the mA and/or kV according to patient size, radiation dose was kept as low as reasonably a chievable to obtain optimal diagnostic quality images. FINDINGS: Scattered small foci of low attenuation seen in the periventricular white matter of both cerebral hem ispheres. These appear patchy rather than diffuse and of concern for possible underlying intra-axial masses. A 2.5 x 5.3 cm area of similar patchy low attenuation seen in the subcortical region of the l eft occipital lobe. Additional characterization with a contrast-enhanced study recommended, preferabl y MRI. No bleed. No mass effect or midline shift. There is a 12 mm lucency of the right occipital bone that involves both the inner and outer tabl es and of concern for a lytic lesion.. There is mucoperiosteal thickening of the visualized paranasal sinuses. Small fluid level seen in the right maxillary air cell. CONCLUSION: 1. Scattered small foci of periventricular and left occipital subcortical low attenuation as above. M RI of the brain with and without contrast recommended. 2. Possible 12 mm lytic lesion in the right occipital bone. 3. Acute on chronic appearing sinusitis. José Miguel Wilkinson MD on September 26, 2016 at 17:10 Board Certified Radiologist. This report was verified electronically.
--- NOTE | 2016-09-26 19:01 | ECHLIM ---
Study Study Date:09/26/2016 STUDY CONCLUSIONS SUMMARY LEFT ATRIUM: There is a somewhat mobile appearing opacity in the high left atrium of uncertain origin; consider RICKY if clinically indicated. If LV function is below 40, please consider prescribing an ACEI or ARB or document rationale for non-use. PROCEDURE DATA Procedure: Transthoracic echocardiography. Image quality was good. Scanning was performed from the parasternal, apical, and subcostal acoustic windows. Study completion: The patient tolerated the procedure well. Transthoracic echocardiography. M-mode, limited 2D, limited spectral Doppler, and color Doppler. CARDIAC ANATOMY LEFT ATRIUM: There is a somewhat mobile appearing opacity in the high left atrium of uncertain origin; consider RICKY if clinically indicated. Prepared and signed by Sean Severino [id number]
[2016-09-26] MEDS: CISATRACURIUM INJ 100 MG in SODIUM CHLOR 0.9% 250 ML INJ 240 ML IV SCH (19:14)
[2016-09-26] MEDS ORDERED: FUROSEMIDE 40 MG/4 ML VIAL IV PUSH ONE (23:45)
[2016-09-27] VITALS (17 sets, daily range): BP systolic 100–135; BP diastolic 44–66; PULSE 88–104; RESP 20; TEMP 98.4–100.9; O2SAT 96–98
[2016-09-27] MEDS: HEPARIN SODIUM - SQ 10,000 UNITS/ML VIAL SQ SCH ×3 (00:13→16:39)
[2016-09-27] MEDS: NOREPINEPHRINE 4 MG/D5W 250 ML IV SCH ×2 (01:10→11:09)
[2016-09-27] MEDS: INSULIN ASPART SUPPLEMENTAL SCALE SQ SCH ×6 (01:12→21:00)
[2016-09-27] MEDS: CHLORHEXIDINE GLUCONATE 2 % 1 PACK (2 CLOTHS) TOP SCH (04:00)
[2016-09-27] MEDS: RESP: ALBUTEROL 2.5 MG/IPRATROPIUM 0.5 MG NEB (SCH) INH ×4 (04:30→21:17)
[2016-09-27] MEDS: CISATRACURIUM INJ 100 MG in SODIUM CHLOR 0.9% 250 ML INJ 240 ML IV SCH (05:38)
[2016-09-27 05:40] LABS: AUTOMATED NEUTROPHIL # 10.6 TH/MM3 (1.8-7.7); BASOPHIL % 0.1 % (0.0-2.0); HEMATOCRIT 33.1 % (39.0-51.0); LYMPH % 6.9 % (9.0-44.0); LYMPHOCYTE # 0.9 TH/MM3 (1.0-4.8); MEAN CELL VOLUME 93.5 FL (80.0-100.0); MEAN CORPUSCULAR HEMOGLOBIN 30.6 PG (27.0-34.0); MEAN CORPUSCULAR HGB CONC 32.8 % (32.0-36.0); MONO % 8.1 % (0.0-8.0); NEUT % 84.9 % (16.0-70.0); PLATELET COUNT 132 TH/MM3 (150-450); RED BLOOD COUNT 3.54 MIL/MM3 (4.50-5.90); RED CELL DISTRIBUTION WIDTH 14.4 % (11.6-17.2); WHITE BLOOD COUNT 12.5 TH/MM3 (4.0-11.0)
[2016-09-27 05:57] LABS: HEMO FLAGS AUTO DIFF
[2016-09-27 06:14] LABS: MAGNESIUM 1.4 MG/DL (1.5-2.5)
[2016-09-27 06:46] LABS: BICARBONATE 20.9 MEQ/L (21.0-32.0); POTASSIUM 4.1 MEQ/L (3.5-5.1)
--- NOTE | 2016-09-27 06:48 | RADRPT ---
EXAM DATE/TIME: 09/27/2016 04:58 [facility] COMPARISON: CHEST SINGLE AP, September 26, 2016, 2:27. INDICATIONS : Shortness of breath, possible pulmonary disease. MEDICAL HISTORY : Cardiovascular disease. SURGICAL HISTORY : None. ENCOUNTER: Subsequent ACUITY: 2 days PAIN SCORE: Non-responsive. LOCATION: Bilateral chest FINDINGS: Endotracheal tube tip well above the alonso. Right internal jugular catheter tip projects in the rig ht ventricle. There is persisting consolidation in the left lower lung with loss of delineation of t he left hemidiaphragm. Hazy opacity in the right lower lung without consolidation. The upper lungs are clear. CONCLUSION: Persistent left lower lobe consolidation and ill-defined opacities in the right lower lung. Lito Ruelas MD on September 27, 2016 at 6:45 Board Certified Radiologist. This report was verified electronically.
[2016-09-27] MEDS ORDERED: DOBUTamine PREMIX DRIP 250 ML ONE (07:00)
[2016-09-27] MEDS: DOBUTamine PREMIX DRIP 250 ML IV SCH ×2 (07:01→16:38)
[2016-09-27] MEDS ORDERED: POTASSIUM CHLOR 40 MEQ PREMIX 100 ML IV PRN ×2 (07:15)
[2016-09-27] MEDS ORDERED: MAGNESIUM OXIDE 400 MG TAB PO PRN (07:15)
[2016-09-27] MEDS ORDERED: POTASSIUM CHLOR 20 MEQ PREMIX 100 ML IV PRN ×2 (07:15)
[2016-09-27] MEDS ORDERED: MAGNESIUM SULFATE INJ 4 GM in SODIUM CHLORIDE 0.9% INJ 92 ML IV PRN (07:15)
[2016-09-27] MEDS ORDERED: POTASSIUM PHOSPHATE INJ 30 MMOL in SODIUM CHLOR 0.9% 250 ML INJ 250 ML IV PRN (07:15)
[2016-09-27] MEDS ORDERED: SODIUM PHOSPHATE INJ 30 MMOL in SODIUM CHLOR 0.9% 250 ML INJ 240 ML IV PRN (07:15)
[2016-09-27] MEDS ORDERED: POTASSIUM PHOSPHATE MONOBASIC 500 MG TAB PO PRN (07:15)
[2016-09-27] MEDS ORDERED: POTASSIUM PHOSPHATE MONOBASIC 500 MG TAB PO/TUBE PRN (07:15)
[2016-09-27] MEDS ORDERED: MAGNESIUM SULFATE INJ 2 GM in SODIUM CHLORIDE 0.9% INJ 96 ML IV PRN (07:15)
[2016-09-27] MEDS ORDERED: MAGNESIUM SULFATE 1 GM PREMIX 100 ML ONE (07:17)
--- NOTE | 2016-09-27 07:22 | HHI.CCPN ---
Subjective Remarks/Hospital Course Hospital Course: 86-year-old male with PMH of coronary artery disease with angioplasty in 1991, CHF, who originally came in as a José Miguel Gambino to [facility] emergency department. His states that he had been having some shortness of breath and what she describes as "cold symptoms" for about 4-5 days. She states he acutely awoke very short of breath and [facility] was called. They initially gave a DuoNeb and felt that he was getting some response however he became her family bradycardic and unresponsive. He was in asystole. He received chest compressions, multiple doses of epinephrine, and Combitube was placed. They obtained ROSC upon arrival to ED after unknown period of CPR. He did lose pulses again and had CPR in the ED and one dose of epinephrine. He had ROSC. Combitube was removed and patient was reintubated with some difficulty requiring glide scope. EKG showed complete heart block. He was paced transcutaneous. Dr. Guthrie discussed EKG with director of leadership development due to concern for ischemia but findings were felt to be consistent with 3rd degree heart block without STEMI. Transvenous pacemaker was placed by Dr. Guthrie with good capture. Patient remained hypotensive and levophed was initiated. He was severely hypoxic with sats in 70s on 100% FIO2 so PEEP was increased to 14 prior to transfer. Upon arrival he was on PEEP of 10 and sats were in the 70s and he was on Levophed 12 mcg/min. Pupils fixed, nonreactive. +corneal reflex and spontaneous respirations. was unclear of his medication list upon initial admission. She did state that one of his antihypertensive medications had been discontinued a few months ago due to bradycardia. Subjective: 09/27: yesterday, significantly hypoxic. echo yesterday with severely depressed LV function. this morning, less hypoxic, fio2 weaned to 45%. pupils more reactive today. CT head yesterday without significant intracranial pathology. overnight significant oliguria, trial of lasix 40mg iv without improvement. I placed central venous line this morning (see procedure note for details), CVP 11. Pulse contour analysis demonstrates CI 2.8 with SVV 9. Cr uptrending. Objective Vital Signs Date Time Temp Pulse Resp B/P Pulse Ox O2 Delivery O2 Flow Rate FiO2 09/27/16 04:31 98 50 09/27/16 04:00 80 09/27/16 04:00 Mechanical Ventilator 09/27/16 03:00 98.6 20 100/47 111/51 09/26/16 00:29 15 Intake and Output 09/26/16 09/26/16 09/27/16 08:00 16:00 00:00 Intake Total 3000 ml 760 ml Output Total 400 ml Balance 3000 ml 360 ml Result Diagram: 09/27/16 0500 09/27/16 0500 Objective Remarks GENERAL: critically ill elderly male, orotracheally intubated, sedated, paralyzed. HEENT: pupils 4mm but reactive this morning. mucous membranes moist. NECK: Trachea midline. +JVD. right IJ introducer with pacer in place. right SC TLC site clean, dressing intact. CARDIOVASCULAR: NSR at 103 this AM. norepinephrine. RESPIRATORY: Coarse breath sounds bilaterally, worse on right than left. No wheezes. prvc peep 12, fio2 45% GASTROINTESTINAL: Abdomen soft, non-tender, nondistended. no guarding. MUSCULOSKELETAL: Extremities without clubbing, cyanosis, or edema. No obvious deformities. Scar overlying left knee NEUROLOGICAL: still paralyzed and sedated. pupils 4mm reactive. A/P Assessment and Plan Assessment: 86yM who sustained Asystolic Cardiac Arrest whose course is now complicated by acute hypoxic respiratory failure, cardiogenic shock, and acute kidney injury. He is now in multiorgan system failure. It does not appear from central pressure monitoring or pulse contour analysis that he will be volume responsive, which fits with his clinical exam. His poor cardiac output, likely from myocardial stunning post-arrest, is likely adding or compounding his organ dysfunction. we will start inotropic support with dobutamine and re-evaluate. We will stop neuromuscular blockade today and attempt sedation holiday to see what his neurologic exam is. If it is poor, we will proceed with EEG and MRI for prognosis. NEURO: Acute encephalopathy Possible Hypoxic-Ischemic encephalopathy --continue versed/fentanyl for sedation. once off paralytic, will wean sedation --frequent neuro checks --if no improvement in neuro exam, EEG and MRI. RESP: Acute hypoxic respiratory failure Pulmonary edema Duoneb q6h and q2h prn Vent Bundle HOB at 30 degrees received lasix 40mg iv x 1 overnight without good response. off Nimbex today continue Flolan wean fio2 for goal spo2 > 90% keep PEEP elevated today while we wean nimbex. could consider weaning flolan later today if he remains stable. CV: Asystolic cardiac arrest 3rd degree heart block- resolved. Cardiogenic shock Acute systolic heart failure Norepinephrine for map > 65 to maintain end-organ perfusion start dobutamine at 5 mcg/kg/min for inotropic support. trend lactate and uop has not required pacing x 24h. will discuss with cardiology and likely d/c pacer today. continue daily ASA. Hold norvasc/lisinopril due to hypotension. Hold statin due to elevated LFTS. Cardiology following: Dr. Able Continue CVP Continue Pulse contour analysis, trend cardiac index and SVV GI: Transaminase elevation due to CHF/ischemic hepatopathy NPO unable to place OG tube yesterday. will attempt again today. FEN/RENAL: Acute severe metabolic acidemia Lactic acidemia secondary to cardiogenic shock h/o high uric acid stones - Hold allopurinol for now. Dominguez in place. Monitor intake and output. Monitor electrolytes. ICU electrolyte protocol. Daily BMP, Mg ID: -Presentation initially appeared cardiogenic and patient with severe life threatening hypoxemia and pulmonary edema, so initially avoided abx. currently, RLL with significant infiltrate and clinically worse overnight hemodynamically. will send blood culture and sputum culture and start empiric zosyn 3.375 gm iv q8h. would have low threshold to de-escalate abx if cultures are negative. HEME: Monitor CBC. ENDO: Acute stress hyperglycemia Low dose insulin sliding scale every 4 hours PROPH: Heparin subcutaneous for DVT prophylaxis. Protonix 40 mg IV daily for stress ulcer prophylaxis ACCESS: -R IJ Introducer and pacer placed in ED 09/26 . we will consider removing this today. -Right radial art line placed in ED 09/26. -right SC TLC 09/27 -Dominguez CCT 78 minutes exclusive of separately billable procedures. Walker Eli MD Sep 27, 2016 07:22
--- NOTE | 2016-09-27 07:42 | RADRPT ---
EXAM DATE/TIME: 09/27/2016 06:21 [facility] COMPARISON: CHEST SINGLE AP, September 27, 2016, 4:58. INDICATIONS : Central line placement. MEDICAL HISTORY : Cardiovascular disease. SURGICAL HISTORY : None. ENCOUNTER: Initial ACUITY: 1 day PAIN SCORE: Non-responsive. LOCATION: Bilateral chest FINDINGS: The ET tube, right internal jugular and right subclavian lines are well placed. The heart size is nor mal. There is increased density at the left mid and lower lung and at the right base. The hemidiaphra gms are not included on this image. CONCLUSION: Bilateral areas of consolidation or atelectasis being worse on the left. José Miguel Andrade MD on September 27, 2016 at 7:39 Board Certified Radiologist. This report was verified electronically.
[2016-09-27] MEDS: CHLORHEXIDINE 0.12% (ORAL KIT) 15 ML CUP MT SCH ×2 (07:49→22:19)
--- NOTE | 2016-09-27 07:49 | PD.PROCEDR ---
Procedure Note Procedure Central Line Procedure Note Right subclavian triple-lumen catheter Diagnosis: Cardiogenic shock Indications:need for central pressure monitoring Consent: Consent is deemed emergent or medically necessary Anesthesia: Versed IV, fentanyl IV Description of the Procedure: The patient was placed in the supine, mild- Trendelenburg position. The area was prepped and draped sterilely. A 19g needle was inserted under negative pressure aspiration and dark venous blood was obtained. A guidewire was inserted easily without resistance. A small incision was made using a #11 blade. Using a modified Seldinger technique, the dilator and 7 Cymro, 20 cm catheter were advanced over the guidewire without resistance. All ports were aspirated and flushed, and had brisk blood return. The line was secured at 18 cm at the skin using 2-0 silk interrupted sutures. A Biopatch and Transparent sterile dressing were applied. There were no immediate complications noted. There was minimal EBL. The patient tolerated the procedure well. Ultrasound guidance was not used for this procedure. A Chest x-ray has been ordered. I personally performed the procedure. Walker Eli MD Sep 27, 2016 07:49
[2016-09-27] MEDS: PIPERACIL-TAZO 3.375 GM PREMIX 50 ML IV SCH ×3 (08:08→16:39)
[2016-09-27 08:14] LABS: BANDS 22 % (0-6); BURR CELLS 1+ (NORMAL); METAMYELOCYTES 5 % (0-1); NEUTROPHIL # MANUAL DIFF 11.3 TH/MM3 (1.8-7.7); OVALOCYTES 1+ (NORMAL); PLATELET ESTIMATE SMEAR LOW (NORMAL); PLATELET MORPHOLOGY NORMAL (NORMAL); POLYS (SEG NEUTROPHILS) 63 % (16-70); SCAN/DIFF FINAL DIFF MANUAL; WBC DIFF SAMPLE 100
--- NOTE | 2016-09-27 08:45 | PD.CARD.PN ---
Subjective Subjective Remarks No events over night, no pacing for 24 hours Objective Medications Current Medications Medications (Trade) Dose Ordered Sig/Devin Route Start Time Stop Time Status Last Admin Fentanyl Citrate 250 ml @ 0 mls/hr TITRATE IV 09/26/16 05:45 (Versed Inj) 100 ml @ 0 mls/hr TITRATE IV 09/26/16 05:45 09/26/16 07:48 Chlorhexidine Gluconate 15 ml 15 ml BID@08,20 MT 09/26/16 08:00 09/27/16 07:49 Epoprostenol Sodium 87.5 ml/ Sodium Chloride 100 ml @ 8 mls/hr Q8H NEB 09/26/16 06:45 09/26/16 22:45 (Levophed-Dextrose Drip) 250 ml @ 0 mls/hr TITRATE IV 09/26/16 07:00 09/27/16 01:10 (NS Flush) 2 ml UNSCH PRN IV FLUSH 09/26/16 07:30 (NS Flush) 2 ml BID IV FLUSH 09/26/16 09:00 09/26/16 09:51 (Tylenol) 650 mg Q6H PRN PO 09/26/16 07:30 (Protonix Inj) 40 mg DAILY IV 09/26/16 09:00 09/26/16 09:51 (Versed Inj) 2 mg Q1H PRN IV 09/26/16 07:30 (Zofran Inj) 4 mg Q6H PRN IV 09/26/16 07:30 (Heparin Inj) 5,000 units Q8H SQ 09/26/16 09:00 09/27/16 00:13 Miscellaneous Information 1 Q361D XX 09/26/16 07:30 (Chlorhexidine 2% Cloth) 3 pack Taper DAILY@04 TOP 09/27/16 04:00 09/23/17 03:59 09/27/16 04:00 (Chlorhexidine 2% Cloth) 3 pack UNSCH PRN TOP 09/26/16 07:30 (Aspirin Chew) 81 mg DAILY TUBE 09/27/16 09:00 (D50w (Vial) Inj) 25 ml UNSCH PRN IV PUSH 09/26/16 12:45 (Glucagon Inj) 1 mg UNSCH PRN OTHER 09/26/16 12:45 Insulin Aspart 1 1 Q4H SQ 09/26/16 13:00 09/27/16 01:12 (DOBUTamine PREMIX DRIP) 250 ml @ 25.89 mls/ hr Q9H40M IV 09/27/16 07:01 Magnesium Oxide 800 mg 800 mg UNSCH PRN PO 09/27/16 07:15 Hold Magnesium Sulfate 4 gm/Sodium Chloride 100 ml @ 50 mls/hr UNSCH PRN IV 09/27/16 07:15 Hold Magnesium Sulfate 2 gm/Sodium Chloride 100 ml @ 50 mls/hr UNSCH PRN IV 09/27/16 07:15 Hold Potassium Chloride 100 ml @ 50 mls/hr Q2H PRN IV 09/27/16 07:15 Hold Potassium Chloride 100 ml @ 50 mls/hr Q2H PRN IV 09/27/16 07:15 Hold Potassium Chloride 100 ml @ 50 mls/hr Q2H PRN IV 09/27/16 07:15 Hold (KCl 40 Meq Premix Inj) 100 ml @ 25 mls/hr UNSCH PRN IV 09/27/16 07:15 Hold (K-Phos) 2,000 mg Q4H PRN PO 09/27/16 07:15 Hold Potassium Phosphate 2000 mg 2,000 mg UNSCH PRN PO/TUBE 09/27/16 07:15 Hold Potassium Phosphate 30 mmol/ Sodium Chloride 260 ml @ 42 mls/hr UNSCH PRN IV 09/27/16 07:15 Hold Sodium Phosphate 30 mmol/Sodium Chloride 250 ml @ 42 mls/hr UNSCH PRN IV 09/27/16 07:15 Hold (Zosyn 3.375 Gm Premix) 50 ml @ 100 mls/hr Q8H IV 09/27/16 08:00 09/27/16 08:08 Vital Signs / I&O Vital Signs Date Time Temp Pulse Resp B/P Pulse Ox O2 Delivery O2 Flow Rate FiO2 09/27/16 08:13 80 09/27/16 08:12 98 Mechanical Ventilator 45 09/27/16 08:12 45 09/27/16 07:37 90 09/27/16 07:34 98.6 98 20 112/66 98 Arterial Line 09/27/16 07:00 98 45 09/27/16 04:31 98 50 09/27/16 04:00 80 09/27/16 04:00 98 Mechanical Ventilator 50 09/27/16 04:00 50 09/27/16 03:00 93 09/27/16 03:00 98.6 93 20 100/47 98 111/51 09/27/16 01:09 98 50 09/27/16 00:00 50 09/27/16 00:00 80 09/27/16 00:00 98 Mechanical Ventilator 50 09/26/16 23:00 88 09/26/16 23:00 98.4 87 20 108/63 98 111/51 09/26/16 22:40 97 50 09/26/16 20:25 98 50 09/26/16 20:00 50 09/26/16 20:00 97 Mechanical Ventilator 50 09/26/16 20:00 80 09/26/16 19:00 98.7 93 20 109/55 97 109/57 09/26/16 19:00 92 09/26/16 16:41 80 09/26/16 16:41 65 09/26/16 16:41 99 Mechanical Ventilator 65 09/26/16 16:30 100 100 09/26/16 16:30 100 65 09/26/16 15:03 97.5 80 20 111/64 99 09/26/16 13:44 99 85 09/26/16 12:12 90 09/26/16 12:12 80 09/26/16 12:11 99 Mechanical Ventilator 90 09/26/16 11:22 97.0 80 20 130/73 99 09/26/16 09:40 99 100 09/26/16 08:36 98 Mechanical Ventilator 100 09/26/16 08:26 100 09/26/16 08:23 80 I/O 09/26/16 09/26/16 09/26/16 09/27/16 09/27/16 09/27/16 07:00 15:00 23:00 07:00 15:00 23:00 Intake Total 3000 ml 760 ml 395 ml Output Total 400 ml 172 ml Balance 3000 ml 360 ml 223 ml Intake IV Total 3000 ml 760 ml 395 ml Output Urine Total 400 ml 172 ml # Bowel Movements 3 0 Physical Exam GENERAL: Sedated on the vent SKIN: Warm and dry. HEAD: Atraumatic. Normocephalic. EYES: Pupils equal and round, sluggish reaction ENT: No nasal bleeding or discharge. Mucous membranes pink and moist. NECK: Trachea midline. No JVD. CARDIOVASCULAR: Regular rate and rhythm. Tachycardic RESPIRATORY: No accessory muscle use. Decreased breath sounds bilaterally GASTROINTESTINAL: Abdomen soft, non-tender, nondistended. Hepatic and splenic margins not palpable. MUSCULOSKELETAL: Extremities without clubbing, cyanosis, or edema. No obvious deformities. NEUROLOGICAL: Sedated on the vent, pupils sluggishly reactive PSYCHIATRIC: Unable to assess Laboratory Laboratory Tests Test 09/26/16 09/26/16 09/27/16 09/27/16 11:40 18:29 01:20 05:00 Lactic Acid Level 2.9 mmol/L 2.6 mmol/L 2.8 mmol/L 3.8 mmol/L Troponin I 2.73 NG/ML 2.71 NG/ML White Blood Count 12.5 TH/MM3 Red Blood Count 3.54 MIL/MM3 Hemoglobin 10.8 GM/DL Hematocrit 33.1 % Mean Corpuscular Volume 93.5 FL Mean Corpuscular Hemoglobin 30.6 PG Mean Corpuscular Hemoglobin 32.8 % Concent Red Cell Distribution Width 14.4 % Platelet Count 132 TH/MM3 Mean Platelet Volume 8.1 FL Neutrophils (%) (Auto) 84.9 % Lymphocytes (%) (Auto) 6.9 % Monocytes (%) (Auto) 8.1 % Eosinophils (%) (Auto) 0.0 % Basophils (%) (Auto) 0.1 % Neutrophils # (Auto) 10.6 TH/MM3 Lymphocytes # (Auto) 0.9 TH/MM3 Monocytes # (Auto) 1.0 TH/MM3 Eosinophils # (Auto) 0.0 TH/MM3 Basophils # (Auto) 0.0 TH/MM3 CBC Comment AUTO DIFF Differential Total Cells 100 Counted Neutrophils % (Manual) 63 % Band Neutrophils % 22 % Lymphocytes % 5 % Monocytes % 5 % Neutrophils # (Manual) 11.3 TH/MM3 Metamyelocytes 5 % Differential Comment FINAL DIFF MANUAL Platelet Estimate LOW Platelet Morphology Comment NORMAL Ovalocytes 1+ Worden Cells 1+ Sodium Level 145 MEQ/L Potassium Level 4.1 MEQ/L Chloride Level 111 MEQ/L Carbon Dioxide Level 20.9 MEQ/L Anion Gap 13 MEQ/L Blood Urea Nitrogen 33 MG/DL Creatinine 2.04 MG/DL Estimat Glomerular Filtration 31 ML/MIN Rate Random Glucose 169 MG/DL Calcium Level 7.7 MG/DL Phosphorus Level 4.1 MG/DL Magnesium Level 1.4 MG/DL Assessment and Plan Problem List: (1) Cardiac arrest (2) Third degree heart block (3) Encephalopathy (4) NSTEMI (non-ST elevated myocardial infarction) (5) Cardiogenic shock (6) Respiratory failure Assessment and Plan 1) s/p cardio-pulmonary arrest with asystole 2) Post-arrest, 3rd degree heart block requiring TVP, 3rd possibly due to severe lactic acidosis 3) Not paced in 24 hours, will removed TVP but leave in sheath for now 4) EF 20-25%, Moderate AI, Questionable high LA structure 5) Await neurologic function 6) Agree with Dobutamine Aj Abel DO Sep 27, 2016 08:45
[2016-09-27] MEDS: ASPIRIN 81 MG CHEW TAB TUBE SCH (09:00)
[2016-09-27] MEDS: SODIUM CHLORIDE 0.9% FLUSH 5 ML FLUSH IV FLUSH SCH ×2 (09:07→22:19)
[2016-09-27] MEDS: PANTOPRAZOLE SODIUM 40 MG VIAL IV SCH (09:07)
[2016-09-27] MEDS ORDERED: POTASSIUM CHLOR 20 MEQ PREMIX 100 ML ONE ×2 (09:23→16:49)
[2016-09-27] MEDS: EPOPROSTENOL NEB SOLUTION 50 NG/KG/MIN 100 ML NEB SCH ×6 (11:09→22:45)
[2016-09-27] MEDS: MIDAZOLAM 100 MG/ML INJ 100 ML IV SCH (11:10)
[2016-09-27] MEDS ORDERED: POTASSIUM CHLOR 20 MEQ PREMIX 100 ML IV ONE (17:15)
[2016-09-28] VITALS (15 sets, daily range): BP systolic 107–143; BP diastolic 44–57; PULSE 85–110; RESP 20; TEMP 98.3–100.6; O2SAT 93–99
[2016-09-28] MEDS: INSULIN ASPART SUPPLEMENTAL SCALE SQ SCH ×6 (01:00→21:00)
[2016-09-28] MEDS: NOREPINEPHRINE 4 MG/D5W 250 ML IV SCH (01:49)
[2016-09-28] MEDS: HEPARIN SODIUM - SQ 10,000 UNITS/ML VIAL SQ SCH ×3 (01:59→17:19)
[2016-09-28] MEDS: DOBUTamine PREMIX DRIP 250 ML IV SCH ×3 (02:21→21:41)
[2016-09-28] MEDS ORDERED: EPOPROSTENOL NEB SOLUTION 30 NG/KG/MIN 100 ML NEB SCH ×2 (03:00)
[2016-09-28] MEDS: CHLORHEXIDINE GLUCONATE 2 % 1 PACK (2 CLOTHS) TOP SCH (03:36)
[2016-09-28] MEDS: RESP: ALBUTEROL 2.5 MG/IPRATROPIUM 0.5 MG NEB (SCH) INH ×4 (04:19→21:46)
[2016-09-28 04:56] LABS: HEMATOCRIT 29.3 % (39.0-51.0); MEAN CELL VOLUME 93.1 FL (80.0-100.0); MEAN CORPUSCULAR HEMOGLOBIN 30.8 PG (27.0-34.0); MEAN CORPUSCULAR HGB CONC 33.1 % (32.0-36.0); PLATELET COUNT 123 TH/MM3 (150-450); RED BLOOD COUNT 3.15 MIL/MM3 (4.50-5.90); RED CELL DISTRIBUTION WIDTH 14.2 % (11.6-17.2); REVIEW FLAG FINAL; WHITE BLOOD COUNT 11.6 TH/MM3 (4.0-11.0)
[2016-09-28 05:12] LABS: POTASSIUM 3.9 MEQ/L (3.5-5.1)
[2016-09-28] MEDS ORDERED: EPOPROSTENOL NEB SOLUTION 20 NG/KG/MIN 100 ML NEB SCH ×2 (07:00)
[2016-09-28] MEDS: PIPERACIL-TAZO 3.375 GM PREMIX 50 ML IV SCH (08:40)
[2016-09-28] MEDS: SODIUM CHLORIDE 0.9% FLUSH 5 ML FLUSH IV FLUSH SCH ×2 (09:00→21:00)
[2016-09-28] MEDS: ASPIRIN 81 MG CHEW TAB TUBE SCH (09:00)
[2016-09-28] MEDS: ACETAMINOPHEN 1000 MG/100 ML VIAL IV PRN (09:08)
[2016-09-28] MEDS: CHLORHEXIDINE 0.12% (ORAL KIT) 15 ML CUP MT SCH ×2 (09:28→20:00)
--- NOTE | 2016-09-28 09:30 | HHI.CCPN ---
Subjective Remarks/Hospital Course Hospital Course: 86-year-old male with PMH of coronary artery disease with angioplasty in 1991, CHF, who originally came in as a José Miguel Gambino to [facility] emergency department. His states that he had been having some shortness of breath and what she describes as "cold symptoms" for about 4-5 days. She states he acutely awoke very short of breath and [facility] was called. They initially gave a DuoNeb and felt that he was getting some response however he became her family bradycardic and unresponsive. He was in asystole. He received chest compressions, multiple doses of epinephrine, and Combitube was placed. They obtained ROSC upon arrival to ED after unknown period of CPR. He did lose pulses again and had CPR in the ED and one dose of epinephrine. He had ROSC. Combitube was removed and patient was reintubated with some difficulty requiring glide scope. EKG showed complete heart block. He was paced transcutaneous. Dr. Guthrie discussed EKG with communicable disease specialist due to concern for ischemia but findings were felt to be consistent with 3rd degree heart block without STEMI. Transvenous pacemaker was placed by Dr. Guthrie with good capture. Patient remained hypotensive and levophed was initiated. He was severely hypoxic with sats in 70s on 100% FIO2 so PEEP was increased to 14 prior to transfer. Upon arrival he was on PEEP of 10 and sats were in the 70s and he was on Levophed 12 mcg/min. Pupils fixed, nonreactive. +corneal reflex and spontaneous respirations. was unclear of his medication list upon initial admission. She did state that one of his antihypertensive medications had been discontinued a few months ago due to bradycardia. Subjective: 09/27: yesterday, significantly hypoxic. echo yesterday with severely depressed LV function. this morning, less hypoxic, fio2 weaned to 45%. pupils more reactive today. CT head yesterday without significant intracranial pathology. overnight significant oliguria, trial of lasix 40mg iv without improvement. I placed central venous line this morning (see procedure note for details), CVP 11. Pulse contour analysis demonstrates CI 2.8 with SVV 9. Cr uptrending. 09/28: oxygenation improving. off sedation x 24h. pupils still reactive. + corneals, +cough. extensor posturing in upper extremities, flexor posturing in LEs. no spontaneous movements or purposeful movements. febrile this morning, actively cooling. weaning flolan to off. Objective Vital Signs Date Time Temp Pulse Resp B/P Pulse Ox O2 Delivery O2 Flow Rate FiO2 09/28/16 07:30 96 35 09/28/16 04:00 Mechanical Ventilator 09/28/16 03:00 99.0 85 20 117/57 121/48 09/26/16 00:29 15 Intake and Output 09/27/16 09/27/16 09/28/16 08:00 16:00 00:00 Intake Total 1895 ml 2250 ml Output Total 172 ml 300 ml Balance 1723 ml 1950 ml Result Diagram: 09/28/1642409/28/16424 Objective Remarks GENERAL: critically ill elderly male, orotracheally intubated, comatose. HEENT: pupils 3mm but reactive. mucous membranes moist. NECK: Trachea midline. +JVD. right IJ introducer. right SC TLC site clean, dressing intact. CARDIOVASCULAR: NSR. dobutamine. off norepinephrine. pulse contour analysis CI 2.9 RESPIRATORY: Coarse breath sounds bilaterally, worse on right than left. No wheezes. prvc peep 12, fio2 45% GASTROINTESTINAL: Abdomen soft, non-tender, nondistended. no guarding. MUSCULOSKELETAL: Extremities without clubbing, cyanosis, or edema. No obvious deformities. Scar overlying left knee NEUROLOGICAL: off sedation x 24h. +corneals, +cough, extensor posturing upper extremities, flexor posturing lower extremities. no myoclonus. pupils as above. A/P Assessment and Plan Assessment: 86yM who sustained Asystolic Cardiac Arrest whose course is now complicated by acute hypoxic respiratory failure, cardiogenic shock, and acute kidney injury. He is now in multiorgan system failure. It does not appear from central pressure monitoring or pulse contour analysis that he will be volume responsive, which fits with his clinical exam. Off sedation x 24h. persistently poor neurologic examination. will proceed with MRI and EEG today to eval for hypoxic-ischemic encephalopathy. remain off sedation. At this point, I fear his prognosis is poor for any meaningful neurologic recovery. NEURO: Acute encephalopathy Probable Hypoxic-Ischemic encephalopathy --hold all sedating medications. currently off x 24h. --frequent neuro checks --EEG and MRI today --aggressive cooling with iv tylenol and cooling blanket. target 37 degrees. RESP: Acute hypoxic respiratory failure Pulmonary edema Duoneb q6h and q2h prn Vent Bundle HOB at 30 degrees s/p neuromuscular blockade. wean Flolan today. wean fio2 for goal spo2 > 90% keep PEEP elevated today while we wean Flolan. does not meet SBT criteria due to hemodynamic instability and poor neurologic exam. CV: s/p Asystolic cardiac arrest 3rd degree heart block- resolved. Cardiogenic shock- resolving. Acute systolic heart failure Norepinephrine for map > 65 to maintain end-organ perfusion, currently off. continue dobutamine at 5 mcg/kg/min for inotropic support. lactate cleared. uop poor. could consider weaning this later today or tomorrow. will wait on neurologic examination. d/c introducer/pacer today. continue daily ASA. Hold norvasc/lisinopril due to hypotension. Hold statin due to elevated LFTS. Cardiology following: Dr. Abel Continue CVP Continue Pulse contour analysis, trend cardiac index GI: Transaminase elevation due to CHF/ischemic hepatopathy- resolving. NPO unable to place OG tube yesterday. will await prognostic studies. FEN/RENAL: Acute severe metabolic acidemia- resolving. Lactic acidemia secondary to cardiogenic shock- resolving. h/o high uric acid stones - Hold allopurinol for now. Dominguez in place. Monitor intake and output. Monitor electrolytes. ICU electrolyte protocol. Daily BMP, Mg ID: -Presentation initially appeared cardiogenic and patient with severe life threatening hypoxemia and pulmonary edema, so initially avoided abx. currently, RLL with significant infiltrate and clinically worse overnight hemodynamically. - jefferson cultures still pending. - continue zosyn empirically for now. if cultures negative at 48h, will d/c. HEME: Monitor CBC. ENDO: Acute stress hyperglycemia Low dose insulin sliding scale every 4 hours PROPH: Heparin subcutaneous for DVT prophylaxis. Protonix 40 mg IV daily for stress ulcer prophylaxis ACCESS: -R IJ Introducer and pacer placed in ED 09/26 . we will remove today. -Right radial art line placed in ED 09/26. -right SC TLC 09/27 -Dominguez CCT 80 minutes exclusive of separately billable procedures. Walker Eli MD Sep 28, 2016 09:30
[2016-09-28] MEDS ORDERED: EPOPROSTENOL NEB SOLUTION 10 NG/KG/MIN 100 ML NEB SCH ×2 (11:00)
[2016-09-28] MEDS: PANTOPRAZOLE SODIUM 40 MG VIAL IV SCH (11:31)
--- NOTE | 2016-09-28 12:16 | MG ---
cc: CHRIS ZULUAGA Lab No: Date: 09/28/2016 Age: 86 Sex: M INDICATION Some white matter changes, right occipital bone lytic lesion in an 86-year-old with chest pain. MEDICATION Versed. DESCRIPTION Looks somewhat like a burst suppression pattern with a 6-7 Hz, 60 microvolt rhythm lasting about 2-3 seconds and then some suppression of the background. Sometimes the left temporal lobe comes in before the right showing a slight dyssynchrony, but usually it is synchronous and symmetric. Some focal phase reversing right temporal lobe. Theta waves are noted at times, although not particularly sharp and appears to be actually more bitemporal. I would not say that there are any PLEDs. Photic stimulation is performed without significant posterior driving. IMPRESSION Some prominent bitemporal theta waves but no epileptiform or seizure activity is noted. No PLEDs are seen. Clinical correlation is needed. Bitemporal lobe abnormalities could be considered versus just a general medication effect. MD SUDHEER Archuleta/DON /10:46 AM /11:07 AM
--- NOTE | 2016-09-28 14:18 | PD.CARD.PN ---
Subjective Subjective Remarks No events over night, neurologically no change noted Oxygenating better, on Dobutamine Objective Medications Current Medications Medications (Trade) Dose Ordered Sig/Devin Route Start Time Stop Time Status Last Admin Chlorhexidine Gluconate 15 ml 15 ml BID@08,20 MT 09/26/16 08:00 09/28/16 09:28 (Levophed-Dextrose Drip) 250 ml @ 0 mls/hr TITRATE IV 09/26/16 07:00 09/28/16 01:49 (NS Flush) 2 ml UNSCH PRN IV FLUSH 09/26/16 07:30 (NS Flush) 2 ml BID IV FLUSH 09/26/16 09:00 09/28/16 09:00 (Tylenol) 650 mg Q6H PRN PO 09/26/16 07:30 (Protonix Inj) 40 mg DAILY IV 09/26/16 09:00 09/28/16 11:31 (Zofran Inj) 4 mg Q6H PRN IV 09/26/16 07:30 (Heparin Inj) 5,000 units Q8H SQ 09/26/16 09:00 09/28/16 11:31 Miscellaneous Information 1 Q361D XX 09/26/16 07:30 (Chlorhexidine 2% Cloth) 3 pack Taper DAILY@04 TOP 09/27/16 04:00 09/23/17 03:59 09/28/16 03:36 (Chlorhexidine 2% Cloth) 3 pack UNSCH PRN TOP 09/26/16 07:30 (Aspirin Chew) 81 mg DAILY TUBE 09/27/16 09:00 (D50w (Vial) Inj) 25 ml UNSCH PRN IV PUSH 09/26/16 12:45 Insulin Aspart 1 1 Q4H SQ 09/26/16 13:00 09/27/16 12:28 (DOBUTamine PREMIX DRIP) 250 ml @ 25.89 mls/ hr Q9H40M IV 09/27/16 07:01 09/28/16 08:40 Magnesium Oxide 800 mg 800 mg UNSCH PRN PO 09/27/16 07:15 Hold Magnesium Sulfate 4 gm/Sodium Chloride 100 ml @ 50 mls/hr UNSCH PRN IV 09/27/16 07:15 Hold Magnesium Sulfate 2 gm/Sodium Chloride 100 ml @ 50 mls/hr UNSCH PRN IV 09/27/16 07:15 Hold Potassium Chloride 100 ml @ 50 mls/hr Q2H PRN IV 09/27/16 07:15 Hold Potassium Chloride 100 ml @ 50 mls/hr Q2H PRN IV 09/27/16 07:15 Hold Potassium Chloride 100 ml @ 50 mls/hr Q2H PRN IV 09/27/16 07:15 Hold (KCl 40 Meq Premix Inj) 100 ml @ 25 mls/hr UNSCH PRN IV 09/27/16 07:15 Hold (K-Phos) 2,000 mg Q4H PRN PO 09/27/16 07:15 Hold Potassium Phosphate 2000 mg 2,000 mg UNSCH PRN PO/TUBE 09/27/16 07:15 Hold Potassium Phosphate 30 mmol/ Sodium Chloride 260 ml @ 42 mls/hr UNSCH PRN IV 09/27/16 07:15 Hold (Sodium Phosphate Inj/NS 250 ml Inj) 250 ml @ 42 mls/hr UNSCH PRN IV 09/27/16 07:15 Hold Acetaminophen 1000 mg 1,000 mg Q6H PRN IV 09/28/16 08:45 09/28/16 09:08 (Zosyn 2.25 Gm Premix) 50 ml @ 100 mls/hr Q6H IV 09/28/16 14:00 Vital Signs / I&O Vital Signs Date Time Temp Pulse Resp B/P Pulse Ox O2 Delivery O2 Flow Rate FiO2 09/28/16 12:45 97 35 09/28/16 12:00 30 09/28/16 12:00 97 Mechanical Ventilator 35 09/28/16 12:00 100.1 09/28/16 11:00 99.3 101 20 107/51 98 130/44 09/28/16 11:00 96 09/28/16 10:09 95 35 09/28/16 08:00 96 Mechanical Ventilator 35 09/28/16 08:00 30 09/28/16 07:30 96 35 09/28/16 07:00 100.6 110 20 115/51 96 138/51 09/28/16 07:00 110 09/28/16 04:20 93 30 09/28/16 04:00 96 Mechanical Ventilator 30 09/28/16 04:00 30 09/28/16 03:00 99.0 85 20 117/57 94 121/48 09/28/16 03:00 87 09/28/16 01:00 95 30 09/28/16 00:00 30 09/28/16 00:00 97 Mechanical Ventilator 35 09/27/16 23:00 98.4 88 20 121/64 97 135/52 09/27/16 23:00 93 09/27/16 22:10 97 35 09/27/16 20:10 97 40 09/27/16 20:00 35 09/27/16 20:00 97 Mechanical Ventilator 35 09/27/16 19:19 96 09/27/16 19:15 100.1 99 20 110/56 96 114/44 09/27/16 16:19 98 45 09/27/16 16:08 45 09/27/16 16:08 98 Mechanical Ventilator 45 09/27/16 15:09 100.9 102 20 107/56 97 09/27/16 15:07 102 I/O 09/27/16 09/27/16 09/27/16 09/28/16 09/28/16 09/28/16 07:00 15:00 23:00 07:00 15:00 23:00 Intake Total 1895 ml 2250 ml 1053 ml Output Total 172 ml 300 ml 475 ml Balance 1723 ml 1950 ml 578 ml Intake IV Total 1895 ml 2250 ml 1053 ml Output Urine Total 172 ml 300 ml 475 ml # Bowel Movements 0 1 1 Physical Exam GENERAL: Sedated on the vent SKIN: Warm and dry. HEAD: Atraumatic. Normocephalic. EYES: Pupils equal and round, sluggish reaction ENT: No nasal bleeding or discharge. Mucous membranes pink and moist. NECK: Trachea midline. No JVD. CARDIOVASCULAR: Regular rate and rhythm. Tachycardic RESPIRATORY: No accessory muscle use. Decreased breath sounds bilaterally GASTROINTESTINAL: Abdomen soft, non-tender, nondistended. Hepatic and splenic margins not palpable. MUSCULOSKELETAL: Extremities without clubbing, cyanosis, or edema. No obvious deformities. NEUROLOGICAL: Sedated on the vent, pupils sluggishly reactive PSYCHIATRIC: Unable to assess Laboratory Laboratory Tests Test 09/28/16 04:25 White Blood Count 11.6 TH/MM3 Red Blood Count 3.15 MIL/MM3 Hemoglobin 9.7 GM/DL Hematocrit 29.3 % Mean Corpuscular Volume 93.1 FL Mean Corpuscular Hemoglobin 30.8 PG Mean Corpuscular Hemoglobin 33.1 % Concent Red Cell Distribution Width 14.2 % Platelet Count 123 TH/MM3 Mean Platelet Volume 7.9 FL Sodium Level 144 MEQ/L Potassium Level 3.9 MEQ/L Chloride Level 112 MEQ/L Carbon Dioxide Level 20.0 MEQ/L Anion Gap 12 MEQ/L Blood Urea Nitrogen 45 MG/DL Creatinine 2.14 MG/DL Estimat Glomerular Filtration 29 ML/MIN Rate Random Glucose 118 MG/DL Lactic Acid Level 0.9 mmol/L Calcium Level 7.7 MG/DL Magnesium Level 1.9 MG/DL Assessment and Plan Problem List: (1) Cardiac arrest (2) Third degree heart block (3) Encephalopathy (4) NSTEMI (non-ST elevated myocardial infarction) (5) Cardiogenic shock (6) Respiratory failure Assessment and Plan 1) s/p cardio-pulmonary arrest with asystole 2) Post-arrest, 3rd degree heart block requiring TVP, 3rd possibly due to severe lactic acidosis 3) Not paced in 48 hours, TVP removed yesterday 4) EF 20-25%, Moderate AI, Questionable high LA structure, would consider RICKY if patient rebounds 5) Await neurologic function, overall poor prognosis Aj Abel DO Sep 28, 2016 14:18
[2016-09-28] MEDS: PIPERACIL-TAZO 2.25 GM PREMIX 50 ML IV SCH ×2 (15:06→20:00)
[2016-09-28] MEDS ORDERED: ALTEPLASE RECOMBINANT 2 MG VIAL IV FLUSH ONE (15:30)
--- NOTE | 2016-09-28 16:56 | RADRPT ---
EXAM DATE/TIME: 09/28/2016 16:26 [facility] COMPARISON: CT BRAIN W/O CONTRAST, September 26, 2016, 16:16. INDICATIONS : Altered mental status RADIATION DOSE: 47.96 CTDIvol (mGy) MEDICAL HISTORY : Cardiovascular disease. SURGICAL HISTORY : None. ENCOUNTER: Initial ACUITY: 1 day PAIN SCALE: Non-responsive LOCATION: Cranial TECHNIQUE: Multiple contiguous axial images were obtained of the head. Using automated exposure control and adjustment of the mA and/or kV according to patient size, radiation dose was kept as low as reasonably achievable to obtain optimal diagnostic quality images. FINDINGS: There is loss of the kent-white differentiation. There is a low density in the basal g anglia and caudate regions bilaterally. There is low density seen throughout the cerebellar hemisphe re. There is effacement of the fourth ventricle. The cortical sulci are open. The basal cisterns a re open. There is fluid or mucosal disease in the frontal, ethmoid, maxillary and sphenoid sinuses. CONCLUSION: 1. Decreased density in the basal ganglia and caudate with loss of the kent-white differentiation thr oughout the cerebral hemispheres concerning for global anoxic injury. 2. Low density throughout the cerebellar hemisphere concerning for cerebellar infarction. José Miguel Andrade MD on September 28, 2016 at 16:45 Board Certified Radiologist. This report was verified electronically.
[2016-09-29] VITALS: BP_SYST 135; BP_SYST 160; BP_DIAS 53; BP_DIAS 66; PULSE 108; RESP 20; TEMP 101.9; O2SAT 94
[2016-09-29] MEDS: INSULIN ASPART SUPPLEMENTAL SCALE SQ SCH ×3 (01:00→08:06)
[2016-09-29 01:15] VITALS: O2SAT 96
[2016-09-29] MEDS: HEPARIN SODIUM - SQ 10,000 UNITS/ML VIAL SQ SCH ×2 (02:00→09:00)
[2016-09-29] MEDS: PIPERACIL-TAZO 2.25 GM PREMIX 50 ML IV SCH ×2 (02:00→07:23)
[2016-09-29] MEDS: ACETAMINOPHEN 1000 MG/100 ML VIAL IV PRN (02:01)
[2016-09-29] MEDS: RESP: ALBUTEROL 2.5 MG/IPRATROPIUM 0.5 MG NEB (SCH) INH ×2 (03:43→09:12)
[2016-09-29 04:00] VITALS: BP_SYST 144; BP_SYST 152; BP_DIAS 55; BP_DIAS 68; PULSE 102; PULSE 103; RESP 20; TEMP 100.6; O2SAT 96; O2SAT 97
[2016-09-29] MEDS: CHLORHEXIDINE GLUCONATE 2 % 1 PACK (2 CLOTHS) TOP SCH (04:00)
[2016-09-29 04:37] LABS: HEMATOCRIT 29.2 % (39.0-51.0); MEAN CELL VOLUME 92.8 FL (80.0-100.0); MEAN CORPUSCULAR HEMOGLOBIN 30.7 PG (27.0-34.0); MEAN CORPUSCULAR HGB CONC 33.1 % (32.0-36.0); PLATELET COUNT 143 TH/MM3 (150-450); RED BLOOD COUNT 3.14 MIL/MM3 (4.50-5.90); RED CELL DISTRIBUTION WIDTH 14.3 % (11.6-17.2); REVIEW FLAG FINAL; WHITE BLOOD COUNT 14.1 TH/MM3 (4.0-11.0)
[2016-09-29 04:54] LABS: BICARBONATE 21.1 MEQ/L (21.0-32.0)
[2016-09-29 07:19] VITALS: O2SAT 97
[2016-09-29] MEDS: CHLORHEXIDINE 0.12% (ORAL KIT) 15 ML CUP MT SCH (07:24)
[2016-09-29 08:00] VITALS: BP 152/51; PULSE 100; RESP 20; TEMP 101.2; O2SAT 97
[2016-09-29] MEDS: DOBUTamine PREMIX DRIP 250 ML IV SCH (08:05)
[2016-09-29] MEDS: PANTOPRAZOLE SODIUM 40 MG VIAL IV SCH (08:33)
[2016-09-29] MEDS: SODIUM CHLORIDE 0.9% FLUSH 5 ML FLUSH IV FLUSH SCH (08:34)
[2016-09-29] MEDS: ASPIRIN 81 MG CHEW TAB TUBE SCH (09:00)
[2016-09-29] MEDS ORDERED: LORazepam 2 MG/ML VIAL IV PRN (09:15)
[2016-09-29] MEDS ORDERED: MORPHINE SULFATE 8 MG/ML INJ IV PUSH ONE (09:15)
[2016-09-29] MEDS ORDERED: MORPHINE SULFATE 4 MG/ML INJ IV PRN (09:15)
[2016-09-29] MEDS ORDERED: LORazepam 2 MG/ML VIAL IV ONE ×2 (09:15→15:45)
--- NOTE | 2016-09-29 09:17 | HHI.CCPN ---
Subjective Remarks/Hospital Course Hospital Course: 86-year-old male with PMH of coronary artery disease with angioplasty in 1991, CHF, who originally came in as a José Miguel Gambino to [facility] emergency department. His states that he had been having some shortness of breath and what she describes as "cold symptoms" for about 4-5 days. She states he acutely awoke very short of breath and [facility] was called. They initially gave a DuoNeb and felt that he was getting some response however he became her family bradycardic and unresponsive. He was in asystole. He received chest compressions, multiple doses of epinephrine, and Combitube was placed. They obtained ROSC upon arrival to ED after unknown period of CPR. He did lose pulses again and had CPR in the ED and one dose of epinephrine. He had ROSC. Combitube was removed and patient was reintubated with some difficulty requiring glide scope. EKG showed complete heart block. He was paced transcutaneous. Dr. Guthrie discussed EKG with airport ramp agent due to concern for ischemia but findings were felt to be consistent with 3rd degree heart block without STEMI. Transvenous pacemaker was placed by Dr. Guthrie with good capture. Patient remained hypotensive and levophed was initiated. He was severely hypoxic with sats in 70s on 100% FIO2 so PEEP was increased to 14 prior to transfer. Upon arrival he was on PEEP of 10 and sats were in the 70s and he was on Levophed 12 mcg/min. Pupils fixed, nonreactive. +corneal reflex and spontaneous respirations. was unclear of his medication list upon initial admission. She did state that one of his antihypertensive medications had been discontinued a few months ago due to bradycardia. Subjective: 09/27: yesterday, significantly hypoxic. echo yesterday with severely depressed LV function. this morning, less hypoxic, fio2 weaned to 45%. pupils more reactive today. CT head yesterday without significant intracranial pathology. overnight significant oliguria, trial of lasix 40mg iv without improvement. I placed central venous line this morning (see procedure note for details), CVP 11. Pulse contour analysis demonstrates CI 2.8 with SVV 9. Cr uptrending. 09/28: oxygenation improving. off sedation x 24h. pupils still reactive. + corneals, +cough. extensor posturing in upper extremities, flexor posturing in LEs. no spontaneous movements or purposeful movements. febrile this morning, actively cooling. weaning flolan to off. 09/29: CT scan yesterday with evidence of severe anoxic brain injury. This combined with the persistent poor neurologic exam and poor EEG findings clinically point to an overwhelming probability of poor neurologic recovery. I have discussed this with the family, and they want to proceed with withdraw of care. Objective Vital Signs Date Time Temp Pulse Resp B/P Pulse Ox O2 Delivery O2 Flow Rate FiO2 09/29/16 08:00 97 Mechanical Ventilator 35 09/29/16 08:00 101.2 100 20 152/51 09/26/16 00:29 15 Intake and Output 09/28/16 09/28/16 09/29/16 08:00 16:00 00:00 Intake Total 1053 ml 435 ml Output Total 475 ml 530 ml Balance 578 ml -95 ml Result Diagram: 09/29/16 0410 09/29/16 0410 Other Results Microbiology Date/Time Procedure Status Source Growth 09/27/16 16:00 Gram Stain - Final Complete Sputum Endotracheal 09/27/16 16:00 Sputum Culture - Final Complete Sputum Endotracheal HEAVY GROWTH NORMAL RESPIRATORY DYLAN Objective Remarks GENERAL: critically ill elderly male, orotracheally intubated, comatose. HEENT: pupils 3mm but reactive. mucous membranes moist. NECK: Trachea midline. +JVD. right IJ introducer. right SC TLC site clean, dressing intact. CARDIOVASCULAR: NSR. dobutamine. off norepinephrine. pulse contour analysis CI 2.9 RESPIRATORY: Coarse breath sounds bilaterally, worse on right than left. No wheezes. prvc peep 12, fio2 45% GASTROINTESTINAL: Abdomen soft, non-tender, nondistended. no guarding. MUSCULOSKELETAL: Extremities without clubbing, cyanosis, or edema. No obvious deformities. Scar overlying left knee NEUROLOGICAL: off sedation x 48h. +corneals, +cough, extensor posturing upper extremities, flexor posturing lower extremities. no myoclonus. pupils as above. A/P Assessment and Plan Assessment: 86yM who sustained Asystolic Cardiac Arrest whose course is now complicated by acute hypoxic respiratory failure, cardiogenic shock, and acute kidney injury. He is now in multiorgan system failure. It does not appear from central pressure monitoring or pulse contour analysis that he will be volume responsive, which fits with his clinical exam. Off sedation x 484h. persistently poor neurologic examination. will proceed with palliative withdraw of care based on family's wishes. Active Problems: Severe Hypoxic-Ischemic Encephalopathy Severe acute kidney Injury Cardiogenic Shock Plan: -- morphine and ativan -- palliative withdraw of care -- terminal extubation -- to hospice if he survives the afternoon. Walker Eli MD Sep 29, 2016 09:17
--- NOTE | 2016-09-29 10:12 | DEATH SUM ---
Pronouncement Date Pronounced : Sep 29, 2016 Time Of : 09:52 Pronouncement Called to pronounce of patient. Identified patient as Barbi Cee with wrist band MR# [id number]. Patient with no cardiac activity in 2 separate leads and no palpable/auscible cardiac activity. Patient with no spontaneous respirations, no corneal reflex or response to painful stimuli. Pupils fixed and dilated. Preliminary Cause of : Cardiac arrest Walker Eli MD Sep 29, 2016 10:11
--- NOTE | 2016-09-29 10:14 | HHI.DS ---
Summary Note Date of : Sep 29, 2016 Time Of : 09:52 Admission Date Sep 26, 2016 at 02:39 Admitting Diagnosis cardiac arrest, complete heart block Diagnosis at Time of : Brief History 86-year-old male with PMH of coronary artery disease with angioplasty in 1991, CHF, who originally came in as a José Miguel [place]ree to [facility] emergency department. His states that he had been having some shortness of breath and what she describes as "cold symptoms" for about 4-5 days. She states he acutely awoke very short of breath and [facility] was called. They initially gave a DuoNeb and felt that he was getting some response however he became her family bradycardic and unresponsive. He was in asystole. He received chest compressions, multiple doses of epinephrine, and Combitube was placed. They obtained ROSC upon arrival to ED after unknown period of CPR. He did lose pulses again and had CPR in the ED and one dose of epinephrine. He had ROSC. Combitube was removed and patient was reintubated with some difficulty requiring glide scope. EKG showed complete heart block. He was paced transcutaneous. Dr. Guthrie discussed EKG with glass washer and carrier due to concern for ischemia but findings were felt to be consistent with 3rd degree heart block without STEMI. Transvenous pacemaker was placed by Dr. Guthrie with good capture. Patient remained hypotensive and levophed was initiated. He was severely hypoxic with sats in 70s on 100% FIO2 so PEEP was increased to 14 prior to transfer. Upon arrival he was on PEEP of 10 and sats were in the 70s and he was on Levophed 12 mcg/min. Pupils fixed, nonreactive. +corneal reflex and spontaneous respirations. was unclear of his medication list upon initial admission. She did state that one of his antihypertensive medications had been discontinued a few months ago due to bradycardia. CBC/BMP: 09/29/16 0410 09/29/16 0410 Significant Findings Laboratory Tests Test 09/26/16 09/26/16 09/27/16 09/27/16 11:40 18:29 01:20 05:00 Lactic Acid Level 2.9 mmol/L 2.6 mmol/L 2.8 mmol/L 3.8 mmol/L (0.4-2.0) (0.4-2.0) (0.4-2.0) (0.4-2.0) Troponin I 2.73 NG/ML 2.71 NG/ML (0.02-0.05) (0.02-0.05) White Blood Count 12.5 TH/MM3 (4.0-11.0) Red Blood Count 3.54 MIL/MM3 (4.50-5.90) Hemoglobin 10.8 GM/DL (13.0-17.0) Hematocrit 33.1 % (39.0-51.0) Platelet Count 132 TH/MM3 (150-450) Neutrophils (%) (Auto) 84.9 % (16.0-70.0) Lymphocytes (%) (Auto) 6.9 % (9.0-44.0) Monocytes (%) (Auto) 8.1 % (0.0-8.0) Neutrophils # (Auto) 10.6 TH/MM3 (1.8-7.7) Lymphocytes # (Auto) 0.9 TH/MM3 (1.0-4.8) Monocytes # (Auto) 1.0 TH/MM3 (0-0.9) Band Neutrophils % 22 % (0-6) Lymphocytes % 5 % (9-44) Neutrophils # (Manual) 11.3 TH/MM3 (1.8-7.7) Metamyelocytes 5 % (0-1) Platelet Estimate LOW (NORMAL) Ovalocytes 1+ (NORMAL) [place] Cells 1+ (NORMAL) Chloride Level 111 MEQ/L (98-107) Carbon Dioxide Level 20.9 MEQ/L (21.0-32.0) Blood Urea Nitrogen 33 MG/DL (7-18) Creatinine 2.04 MG/DL (0.60-1.30) Estimat Glomerular Filtration 31 ML/MIN (>89) Rate Random Glucose 169 MG/DL (74-106) Calcium Level 7.7 MG/DL (8.5-10.1) Magnesium Level 1.4 MG/DL (1.5-2.5) Test 09/28/16 09/29/16 04:25 04:10 White Blood Count 11.6 TH/MM3 14.1 TH/MM3 (4.0-11.0) (4.0-11.0) Red Blood Count 3.15 MIL/MM3 3.14 MIL/MM3 (4.50-5.90) (4.50-5.90) Hemoglobin 9.7 GM/DL 9.6 GM/DL (13.0-17.0) (13.0-17.0) Hematocrit 29.3 % 29.2 % (39.0-51.0) (39.0-51.0) Platelet Count 123 TH/MM3 143 TH/MM3 (150-450) (150-450) Chloride Level 112 MEQ/L 110 MEQ/L (98-107) (98-107) Carbon Dioxide Level 20.0 MEQ/L (21.0-32.0) Blood Urea Nitrogen 45 MG/DL (7-18) 55 MG/DL (7-18) Creatinine 2.14 MG/DL 2.15 MG/DL (0.60-1.30) (0.60-1.30) Estimat Glomerular Filtration 29 ML/MIN (>89) 29 ML/MIN (>89) Rate Random Glucose 118 MG/DL (74-106) Calcium Level 7.7 MG/DL 8.0 MG/DL (8.5-10.1) (8.5-10.1) Imaging Last 72 hours Impressions Chest X-Ray 09/27/16 0000 Signed Impressions: Service Date/Time: Tuesday, September 27, 2016 06:21 - CONCLUSION: Bilateral areas of consolidation or atelectasis being worse on the left. José Miguel Andrade MD Chest X-Ray 09/27/16 0000 Signed Impressions: Service Date/Time: Tuesday, September 27, 2016 04:58 - CONCLUSION: Persistent left lower lobe consolidation and ill-defined opacities in the right lower lung. Lito Ruelas MD Hospital Course 09/27: yesterday, significantly hypoxic. echo yesterday with severely depressed LV function. this morning, less hypoxic, fio2 weaned to 45%. pupils more reactive today. CT head yesterday without significant intracranial pathology. overnight significant oliguria, trial of lasix 40mg iv without improvement. I placed central venous line this morning (see procedure note for details), CVP 11. Pulse contour analysis demonstrates CI 2.8 with SVV 9. Cr uptrending. 09/28: oxygenation improving. off sedation x 24h. pupils still reactive. + corneals, +cough. extensor posturing in upper extremities, flexor posturing in LEs. no spontaneous movements or purposeful movements. febrile this morning, actively cooling. weaning flolan to off. 09/29: CT scan yesterday with evidence of severe anoxic brain injury. This combined with the persistent poor neurologic exam and poor EEG findings clinically point to an overwhelming probability of poor neurologic recovery. I have discussed this with the family, and they want to proceed with withdraw of care. Despite our best efforts, radiographic evidence, EEG evidence, and clinical evidence of severe anoxia without reasonable liklihood of return of meaningful neurologic function. Family elected to withdraw care. I remained at bedside with the family and extubated the patient. He was made comfortable and with his family at bedside at 09:52. Walker Eli MD Sep 29, 2016 10:13
[2016-09-29] MEDS ORDERED: ACETAMINOPHEN 650 MG SUPP PR PRN (15:45)
[2016-09-29] MEDS ORDERED: MORPHINE SULFATE 4 MG/ML INJ IV ONE (15:45)
--- NOTE | 2016-09-30 07:44 | EKG ---
Date Performed: 09/27/2016 Time Performed: 23:23:24 PTAGE: 86 years EKG: Sinus tachycardia with sinus arrhythmia Left bundle branch block Possible anteroseptal infa rct - age undetermined Inferior/lateral ST-T changes may be due to myocardial ischemia Generalized lo w QRS voltages Similar to last ekg origin of rhythm appears to be sinus but P waves are not particula rly well visualized Abnormal ECG PREVIOUS TRACING : 09/26/2016 05.56 DOCTOR: Sean Severino Interpretating Date/Time 09/30/2016 07:43:34
== END 2016-09-29 11:31 | disposition expired ==
LOC: PHED 00:29 → PHEDA 02:39 → EDBD 02:39 → HCVR 04:51
PROVIDERS: ADMIT Emergency Medicine; ATTEND Emergency Medicine
PROC: 5A2204Z Restoration of Cardiac Rhythm, Single (ICD-10-PCS; principal; 2016-09-26)
PROC: 03HY32Z Insertion of Monitoring Device into Upper Artery, Percutaneous Approach (ICD-10-PCS; 2016-09-26)
PROC: 5A1945Z Respiratory Ventilation, 24-96 Consecutive Hours (ICD-10-PCS; 2016-09-26)
PROC: 0BH17EZ Insertion of Endotracheal Airway into Trachea, Via Natural or Artificial Opening (ICD-10-PCS; 2016-09-26)
PROC: 05HM33Z Insertion of Infusion Device into Right Internal Jugular Vein, Percutaneous Approach (ICD-10-PCS; 2016-09-26)
PROC: B543ZZA Ultrasonography of Right Jugular Veins, Guidance (ICD-10-PCS; 2016-09-26)
PROC: 5A1223Z Performance of Cardiac Pacing, Continuous (ICD-10-PCS; 2016-09-26)
PROC: 05H533Z Insertion of Infusion Device into Right Subclavian Vein, Percutaneous Approach (ICD-10-PCS; 2016-09-27)
DX: I44.2 Atrioventricular block, complete (principal); J96.01 Acute respiratory failure with hypoxia; I21.4 Non-ST elevation (NSTEMI) myocardial infarction; I46.9 Cardiac arrest, cause unspecified; I50.21 Acute systolic (congestive) heart failure; G93.40 Encephalopathy, unspecified; N17.9 Acute kidney failure, unspecified; G93.1 Anoxic brain damage, not elsewhere classified; E87.2 Acidosis; R57.0 Cardiogenic shock; E83.52 Hypercalcemia; R73.09 Other abnormal glucose; R74.0 Nonspecific elevation of levels of transaminase and lactic acid dehydrogenase [LDH]; I10 Essential (primary) hypertension; I25.10 Atherosclerotic heart disease of native coronary artery without angina pectoris; E78.5 Hyperlipidemia, unspecified; Z87.442 Personal history of urinary calculi; E79.0 Hyperuricemia without signs of inflammatory arthritis and tophaceous disease; Z85.46 Personal history of malignant neoplasm of prostate; K21.9 Gastro-esophageal reflux disease without esophagitis; Z96.642 Presence of left artificial hip joint
CPT/HCPCS: 31500; 70450; 71010; 80048; 80053; 82550; 82805; 82948; 83520; 83605; 83735; 83880; 84100; 84443; 84484; 85007; 85014; 85027; 85610; 85730; 87040; 87070; 87205; 92950; 93005; 93306; 93308; 94002; 94003; 94640; 94664; 94799; 95819; 99292; C9113; J0131; J1250; J1325; J1644; J1815; J1940; J2060; J2250; J2270; J2543; J2997; J3010; J3475; J3480; J7050